=== PATIENT | female | born 1970 | race Caucasian/White ===

== ENCOUNTER 2017-05-24 15:25 | Emergency (ER) | payer OTHER ==
[2017-05-24] MEDS ORDERED: FAMOTIDINE 20 MG/2 ML VIAL IV STA (15:50)
[2017-05-24] MEDS ORDERED: SUCRALFATE 1 GM TAB PO STA (15:50)
[2017-05-24] MEDS ORDERED: SODIUM CHLORIDE 0.9% 1,000 ML IV ONE (15:50)
[2017-05-24] MEDS ORDERED: ONDANSETRON 4 MG/2 ML VIAL IVP STA (15:50)
[2017-05-24] MEDS ORDERED: IOHEXOL 350 MG/ML 25 ML BOTTLE (ORAL USE) PO PRN (15:50)
[2017-05-24] MEDS ORDERED: RX INFO: IV CONTRAST WAS GIVEN 1 EACH MISC MISCELLANE PRN (15:50)
--- NOTE | 2017-05-24 16:14 | ED ---
Abdominal Pain HPI - General Chief Complaint: Abdominal Pain Stated Complaint: abdominal pain/lightheaded/dizzy Source: patient Mode of arrival: wheelchair Limitations: no limitations - History of Present Illness Initial Comments: Patient is a 46-year-old female who presents for evaluation for left upper abdominal pain nausea and vomiting since last night. Past medical history as below. Patient stated that she had a lap band procedure about 12-13 years ago at our facility. She also has a history of hiatal hernia. She states that she developed the pain last night. She describes it as a "ripping" sensation. Laying straight makes it better. Moving makes it worse. It is currently 7 out of 10 and severity. She states that she feels nauseous. She vomited once which was clear/mucousy emesis. She has a history of a cholecystectomy and hysterectomy. No diarrhea. Normal bowel movement this morning. No radiation of pain. No changes in diet. No sick contacts. She states that she has a metallic taste in the back of her throat. This is unusual for her. She currently denies fever, chills, headache, changes of vision, URI symptoms, shortness breath, cough, chest pain, diarrhea, pain or burning with urination. - Related Data Home Medications Medication Instructions Recorded Confirmed Acyclovir 400 mg PO DAILY 05/24/17 05/24/17 Estradiol [Estrace] 2 mg PO DAILY 05/24/17 05/24/17 traMADol HCL [Ultram] 50 mg PO Q8H PRN 05/24/17 05/24/17 Previous Rx's Medication Instructions Recorded Ondansetron Odt [Zofran Odt] 4 mg PO Q8H PRN #10 tab 05/24/17 Allergies Allergy/AdvReac Type Severity Reaction Status Date / Time No Known Allergies Allergy Verified 05/24/17 15:36 Review of Systems ROS Statement: Those systems with pertinent positive or pertinent negative responses have been documented in the HPI. ROS Other: All systems not noted in ROS Statement are negative. Past Medical History Past Medical History: GERD/Reflux Additional Past Medical History / Comment(s): hiatel hernia History of Any Multi-Drug Resistant Organisms: None Reported Past Surgical History: Bariatric Surgery, Tonsillectomy, Tubal Ligation Additional Past Surgical History / Comment(s): lap band Past Anesthesia/Blood Transfusion Reactions: No Reported Reaction Past Psychological History: No Psychological Hx Reported Smoking Status: Never smoker Past Alcohol Use History: None Reported Past Drug Use History: None Reported General Exam Limitations: no limitations General appearance: alert, in no apparent distress, other (Nontoxic appearing) Head exam: Present: atraumatic, normocephalic, normal inspection Eye exam: Present: normal appearance, PERRL, EOMI. Absent: scleral icterus, conjunctival injection, periorbital swelling ENT exam: Present: normal exam, mucous membranes moist, other (Mild erythema to the posterior oropharynx) Neck exam: Present: normal inspection. Absent: tenderness, meningismus, lymphadenopathy Respiratory exam: Present: normal lung sounds bilaterally. Absent: respiratory distress, wheezes, rales, rhonchi, stridor Cardiovascular Exam: Present: regular rate, normal rhythm, normal heart sounds. Absent: systolic murmur, diastolic murmur, rubs, gallop, clicks GI/Abdominal exam: Present: soft, tenderness, normal bowel sounds, other (Pain with palpation in the left upper quadrant/epigastric area. Soft. No peritoneal signs. Could palpate the LAP-BAND port.). Absent: distended, guarding, rebound, rigid Extremities exam: Present: normal inspection, full ROM, normal capillary refill. Absent: tenderness, pedal edema, joint swelling, calf tenderness Back exam: Present: normal inspection Neurological exam: Present: alert, oriented X3, CN II-XII intact Psychiatric exam: Present: normal affect, normal mood Skin exam: Present: warm, dry, intact, normal color. Absent: rash Course Vital Signs 05/24/17 05/24/17 05/24/17 15:29 15:59 16:59 Temperature 98.1 F Pulse Rate 90 70 73 Respiratory 20 20 18 Rate Blood Pressure 128/86 124/76 122/67 O2 Sat by Pulse 98 98 97 Oximetry 05/24/17 17:00 Temperature Pulse Rate 83 Respiratory 20 Rate Blood Pressure 128/71 O2 Sat by Pulse 97 Oximetry Medical Decision Making - Medical Decision Making Patient is a 46-year-old female resents for evaluation for epigastric/left upper quadrant abdominal pain. History of LAP-BAND. Patella case and the best back of her throat with a history of hiatal hernia. Concern for abnormality with the LAP-BAND vs hiatal hernia/GERD. We'll order abdominal labs with CT abdomen and pelvis, EKG, Carafate, Pepcid, Zofran, IV fluids. 1608: Normal sinus rhythm. No ST changes. Rate of 69. CA 162. QRS 86. QTc 415. No previous EKG for comparison. 1730: Reviewed laboratory studies. Within normal limits. Awaiting CT. Patient states that her nausea is greatly improved. Still having some discomfort. 1800: @ CT. 1835: Reviewed CT findings. No acute abnormality. Small hiatal hernia. I reevaluated the patient and she states that she symptomatically feels improved. No longer nauseous. Pain improved. She states that she has her bariatric surgeon's contact information at home. We'll provide her with Drs. Mukherjee and Angy for follow-up if she cannot find it. In the interim, encouraged a bland diet. Plenty of fluids. We'll prescribe Zofran for home for nausea and vomiting. Discussed specific signs and symptoms on when to return to the emergency department for further evaluation. She is comfortable with discharge home and will call bariatric surgeon tomorrow for follow-up. - Lab Data Result diagrams: 05/24/17 16:03 05/24/17 16:03 Lab Results 05/24/17 05/24/17 05/24/17 Range/Units 16:03 16:03 17:10 WBC 9.8 (3.8-10.6) k/uL RBC 4.38 (3.80-5.40) m/uL Hgb 13.6 (11.4-16.0) gm/dL Hct 40.2 (34.0-46.0) % MCV 91.8 (80.0-100.0) fL MCH 31.1 (25.0-35.0) pg MCHC 33.9 (31.0-37.0) g/dL RDW 13.6 (11.5-15.5) % Plt Count 243 (150-450) k/uL Neutrophils % 79 % Lymphocytes % 14 % Monocytes % 4 % Eosinophils % 2 % Basophils % 0 % Neutrophils # 7.7 (1.3-7.7) k/uL Lymphocytes # 1.4 (1.0-4.8) k/uL Monocytes # 0.4 (0-1.0) k/uL Eosinophils # 0.2 (0-0.7) k/uL Basophils # 0.0 (0-0.2) k/uL Sodium 145 (137-145) mmol/L Potassium 3.9 (3.5-5.1) mmol/L Chloride 112 H (98-107) mmol/L Carbon Dioxide 22 (22-30) mmol/L Anion Gap 11 mmol/L BUN 12 (7-17) mg/dL Creatinine 0.80 (0.52-1.04) mg/dL Est GFR (MDRD) Af Amer >60 (>60 ml/min/1.73 sqM) Est GFR (MDRD) Non-Af >60 (>60 ml/min/1.73 sqM) Glucose 108 H (74-99) mg/dL Calcium 8.8 (8.4-10.2) mg/dL Total Bilirubin 0.4 (0.2-1.3) mg/dL AST 21 (14-36) U/L ALT 33 (9-52) U/L Alkaline Phosphatase 52 (38-126) U/L Total Protein 6.2 L (6.3-8.2) g/dL Albumin 3.6 (3.5-5.0) g/dL Lipase 118 (23-300) U/L Urine Color Yellow Urine Appearance Cloudy H (Clear) Urine pH 8.0 (5.0-8.0) Ur Specific [place] 1.020 (1.001-1.035) Urine Protein Negative (Negative) Urine Glucose (UA) Negative (Negative) Urine Ketones Negative (Negative) Urine Blood Negative (Negative) Urine Nitrite Negative (Negative) Urine Bilirubin Negative (Negative) Urine Urobilinogen 2.0 (<2.0) mg/dL Ur Leukocyte Esterase Negative (Negative) Ur Squamous Epith Cells 1 (0-4) /hpf Amorphous Sediment Rare H (None) /hpf Urine Mucus Rare H (None) /hpf Disposition Clinical Impression: Abdominal pain, Nausea and vomiting Disposition: HOME SELF-CARE Condition: Good Instructions: Abdominal Pain (ED) Prescriptions: Ondansetron Odt [Zofran Odt] 4 mg PO Q8H PRN #10 tab PRN Reason: Nausea And Vomiting Referrals: Sonny Crain DO [Primary Care Provider] - 1-2 days Arun Travis MD [STAFF PHYSICIAN] - 1-2 days Momo Mukherjee MD [Medical Doctor] - 1-2 days
[2017-05-24 16:17] LABS: Basophils % (A) 0 %; CH 31.9; CHCM 34.9; Eosinophils # (A) 0.2 k/uL (0-0.7); Eosinophils % (A) 2 %; HCT 40.2 % (34.0-46.0); HGB 13.6 gm/dL (11.4-16.0); Luc # (Auto) 0.09; Luc % (Auto) 1; Lymphocytes # (A) 1.4 k/uL (1.0-4.8); Lymphocytes % (A) 14 %; MCH 31.1 pg (25.0-35.0); MCHC 33.9 g/dL (31.0-37.0); MCV 91.8 fL (80.0-100.0); Mean Platelet Volume 7.9; Monocytes # (A) 0.4 k/uL (0-1.0); Monocytes % (A) 4 %; Neutrophils # (A) 7.7 k/uL (1.3-7.7); Neutrophils % (A) 79 %; RBC 4.38 m/uL (3.80-5.40); RDW 13.6 % (11.5-15.5); WBC 9.8 k/uL (3.8-10.6); WBC (Perox) 10.09
[2017-05-24 16:28] LABS: ALT 33 U/L (9-52); AST 21 U/L (14-36); Alkaline Phosphatase 52 U/L (38-126); Anion Gap 11 mmol/L; Blood Urea Nitrogen 12 mg/dL (7-17); Calcium 8.8 mg/dL (8.4-10.2); Carbon Dioxide 22 mmol/L (22-30); Chloride 112 mmol/L (98-107); Glucose 108 mg/dL (74-99); Non-African American GFR(MDRD) >60 (>60 ml/min/1.73 sqM); Potassium 3.9 mmol/L (3.5-5.1); Sodium 145 mmol/L (137-145); Total Bilirubin 0.4 mg/dL (0.2-1.3); Total Protein 6.2 g/dL (6.3-8.2)
[2017-05-24 17:33] VITALS: RESP 20
[2017-05-24 18:00] LABS: Amorphous Sediment,Urine Rare /hpf; Mucus,Urine Rare /hpf; Particle Count 9822; Squamous Epithelial Cell,Urine 1 /hpf (0-4)
[2017-05-24 18:11] LABS: Appearance,Urine Cloudy (Clear); Bilirubin,Urine Negative (Negative); Glucose,Urine (UA) Negative (Negative); Ketones,Urine Negative (Negative); Leukocyte Esterase,Urine Negative (Negative); Nitrite,Urine Negative (Negative); Protein,Urine Negative (Negative); UA Billing (MACRO vs. MICRO) MICRO
--- NOTE | 2017-05-24 18:12 | CT ---
EXAMINATION TYPE: CT abdomen pelvis w con DATE OF EXAM: 05/24/2017 COMPARISON: NONE HISTORY: Abominal pain. Hx of lap band. CT DLP: 861.2 mGycm Automated exposure control for dose reduction was used. TECHNIQUE: Helical acquisition of images was performed from the lung bases through the pelvis. CONTRAST: Performed with Oral Contrast and with IV Contrast, patient injected with 100 mL of Omnipaque 300. FINDINGS: Lung bases are clear of consolidation. There is no pleural effusion. There is a hiatal hernia. There are clips from cholecystectomy. Liver appears normal. Spleen appears normal. There is no pancre atic mass. Bile ducts are not dilated. There is no adrenal mass. There is bariatric surgery with a ring around the gastric fundus. There is small hiatal hernia. There is no adrenal mass. Kidneys show satisfactory contrast opacification. There is no hydronephrosi s. There is no ascites. Bladder distends smoothly. I see no pelvic mass. Appendix appears normal. I see no intestinal wall th ickening. There are no dilated loops. Bony structures appear intact. IMPRESSION: BARIATRIC SURGERY. NO SIGN OF ACUTE ABDOMEN AND PELVIS. SMALL HIATAL HERNIA.
[2017-05-24 18:43] VITALS: BP 133/80; PULSE 62; TEMP 97.4
== END 2017-05-24 19:00 | disposition home or self-care (01) ==
LOC: EC 15:25
DX: R10.12 Left upper quadrant pain (principal); R11.2 Nausea with vomiting, unspecified; Z79.3 Long term (current) use of hormonal contraceptives; Z79.899 Other long term (current) drug therapy; Z98.84 Bariatric surgery status; Z90.710 Acquired absence of both cervix and uterus
CPT/HCPCS: 36415; 93005; 80053; 83690; 85025; 81001; 74177; 99284; 96374; 96375; 96361 ×2; J2405; Q9967

== ENCOUNTER → 2020-04-30 | Outpatient (CLI) | payer OTHER ==
--- NOTE | 2020-05-02 11:02 | MM ---
Reason for exam: screening (asymptomatic). Last mammogram was performed 6 years and 3 months ago. History: Patient is postmenopausal. Family history of breast cancer in maternal aunt, breast cancer in maternal grandmother, and breast cancer in paternal grandmother. Took hormonal contraceptives for 6 years beginning at age 20. Took estrogen for 3 years. Physical Findings: A clinical breast exam by your physician is recommended on an annual basis and results should be correlated with mammographic findings. MG Screening Mammo w CAD Bilateral CC and MLO view(s) were taken. Prior study comparison: January 24, 2014, bilateral digital screening mammo w/CAD. March 13, 2011, right diagnostic mammogram w/CAD. There are scattered fibroglandular densities. No significant changes when compared with prior studies. ASSESSMENT: Benign, BI-RAD 2 RECOMMENDATION: Routine screening mammogram of both breasts in 1 year.
== END | disposition home or self-care (01) ==
LOC: RADMAMWWP 13:26
PROVIDERS: ATTEND Family Medicine
DX: Z12.31 Encounter for screening mammogram for malignant neoplasm of breast (principal)
CPT/HCPCS: 77067

== ENCOUNTER 2021-10-20 09:13 | Emergency (ER) | payer OTHER ==
[2021-10-20 09:18] VITALS: RESP 18; TEMP 98.2
[2021-10-20] MEDS ORDERED: KETOROLAC 15 MG/ML 1 ML VIAL IM STA (09:19)
--- NOTE | 2021-10-20 09:46 | XR ---
EXAMINATION TYPE: XR elbow complete RT DATE OF EXAM: 10/20/2021 COMPARISON: None HISTORY: Fall, pain TECHNIQUE: Three-view right elbow FINDINGS: Radius aligns normally with the humerus. Anterior fat pad is normal. No elevation posterior fat pad is evident which is normal. No acute fracture or dislocation is evident. Follow up exams can be performed 7-10 days from acute trauma for continued pain IMPRESSION: 1. Normal three-view right elbow. Follow-up can be performed as clinically indicated
--- NOTE | 2021-10-20 09:47 | XR ---
EXAMINATION TYPE: XR shoulder complete RT DATE OF EXAM: 10/20/2021 COMPARISON: NONE HISTORY: Pain TECHNIQUE: Shoulder examined in 3 ejections FINDINGS: The humeral head articulates with the glenoid. The acromio-clavicular junction is normal. No acute fractures or dislocations are evident. A follow up study can be performed 7-10 days from acute trauma for continued pain. IMPRESSION: 1. Normal two-view right Shoulder
--- NOTE | 2021-10-20 10:00 | ED ---
Fall HPI - General Chief Complaint: Fall Stated Complaint: right elbow injury Time Seen by Provider: 10/20/21 09:20 Source: patient, RN notes reviewed Mode of arrival: ambulatory - History of Present Illness Initial Comments: Patient is a 51-year-old female that presents to the emergency department complaining of right elbow and shoulder pain. She notes she slipped on ice whil e trying to get into her car prior to work this morning. Patient notes that she usually tolerates pain. Well but feels like she came in for possible injury. Patient notes that moving her right elbow is painful. She does have full range of motion but is reluctant secondary to pain. She denied any other issues or complaints. She was otherwise well-appearing. She denied chest pain shortness of breath headache nausea vomiting diarrhea constipation fever fatigue chills. - Related Data Home Medications Medication Instructions Recorded Confirmed Estradiol [Estrace] 2 mg PO DAILY 05/24/17 08/03/17 traMADol HCL [Ultram] 50 mg PO Q8H PRN 05/24/17 08/03/17 Previous Rx's Medication Instructions Recorded Nystatin 100,000Unit/gm Cream 1 applic TOPICAL BID #120 gm 08/03/17 [Mycostatin Cream] Allergies Allergy/AdvReac Type Severity Reaction Status Date / Time No Known Allergies Allergy Verified 10/20/21 09:18 Review of Systems ROS Statement: Those systems with pertinent positive or pertinent negative responses have been documented in the HPI. ROS Other: All systems not noted in ROS Statement are negative. Past Medical History Past Medical History: GERD/Reflux Additional Past Medical History / Comment(s): hiatal hernia, ovarian cysts History of Any Multi-Drug Resistant Organisms: None Reported Past Surgical History: Bariatric Surgery, Tonsillectomy, Tubal Ligation Additional Past Surgical History / Comment(s): lap band 2002, total hysterectomy 2013 Past Anesthesia/Blood Transfusion Reactions: No Reported Reaction Additional Past Anesthesia/Blood Transfusion Reaction / Comment(s): No hx of transfusions Past Psychological History: Anxiety Smoking Status: Never smoker Past Alcohol Use History: None Reported Past Drug Use History: None Reported - Past Family History Father Family Medical History: Asthma, Cancer Additional Family Medical History / Comment(s): colon cancer, Mother Family Medical History: Cancer Additional Family Medical History / Comment(s): at age 50 from stomach cancer Brother(s) Family Medical History: Cancer Additional Family Medical History / Comment(s): LYMPHOMA General Exam Limitations: no limitations General appearance: alert, in no apparent distress Head exam: Present: atraumatic, normocephalic, normal inspection Eye exam: Present: normal appearance, PERRL, EOMI. Absent: scleral icterus, conjunctival injection, periorbital swelling ENT exam: Present: normal exam Neck exam: Present: normal inspection. Absent: tenderness, meningismus, lymphadenopathy Respiratory exam: Present: normal lung sounds bilaterally. Absent: respiratory distress, wheezes, rales, rhonchi, stridor Cardiovascular Exam: Present: regular rate, normal rhythm, normal heart sounds. Absent: systolic murmur, diastolic murmur, rubs, gallop, clicks Extremities exam: Present: normal inspection, full ROM, normal capillary refill. Absent: tenderness, pedal edema, joint swelling, calf tenderness Right Shoulder Exam: Present: normal inspection, full ROM. Absent: tenderness, swelling, abrasion, laceration, ecchymosis, deformity, crepitus Upper Arm exam: Present: normal inspection, full ROM, tenderness (Posterior middle upper arm). Absent: swelling, abrasion Elbow exam: Present: normal inspection, full ROM, tenderness (Over the olecranon). Absent: swelling, abrasion Neurological exam: Present: alert, oriented X3 Psychiatric exam: Present: normal affect, normal mood Skin exam: Present: warm, dry, intact, normal color. Absent: rash Course Vital Signs 10/20/21 09:14 Temperature 98.2 F Pulse Rate 107 H Respiratory 18 Rate Blood Pressure 162/88 O2 Sat by Pulse 96 Oximetry Medical Decision Making - Medical Decision Making 51-year-old female complaining of right shoulder elbow pain after falling on ice. X-ray of the right shoulder elbow and 15 mg of Toradol ordered. X-ray imaging negative for any acute process. Patient most likely has a right elbow contusion and right arm sprain. Case discussed with Dr. Cevrantes. - Radiology Data Radiology results: report reviewed, image reviewed X-ray right shoulder: Normal to the right shoulder. X-ray right elbow: No muscle 3 view right elbow. Follow-up to be performed as clinically indicated. Disposition Clinical Impression: Fall, Contusion of right elbow, Sprain of right upper arm Disposition: HOME SELF-CARE Condition: Stable Instructions (If sedation given, give patient instructions): Fall Prevention (ED) Additional Instructions: Please return to the Emergency Department if symptoms worsen or any other concerns. Follow-up with primary care in 1-2 days. Repeat x-rays if pain persists for 7-10 days. Take Tylenol Motrin as needed for aches pains or fevers. Is patient prescribed a controlled substance at d/c from ED?: No Referrals: Sonny Crain DO [Primary Care Provider] - 1-2 days Time of Disposition: 09:59
[2021-10-20 10:28] VITALS: BP 158/79; PULSE 101
== END 2021-10-20 10:29 | disposition home or self-care (01) ==
LOC: EC 09:13
DX: S50.01XA Contusion of right elbow, initial encounter (principal); S43.401A Unspecified sprain of right shoulder joint, initial encounter; F41.9 Anxiety disorder, unspecified; W00.0XXA Fall on same level due to ice and snow, initial encounter
CPT/HCPCS: 99283; 96372; 73030; 73080; J1885

== ENCOUNTER → 2022-11-07 | Outpatient (CLI) | payer OTHER ==
--- NOTE | 2022-11-07 10:15 | MM ---
Reason for Exam: Clinical finding. Last mammogram was performed 2 year(s) and 6 month(s) ago. Patient History: Menarche at age 15. First Full-Term at age 20. Left ovary removed at age 46. Right ovary removed at age 46. Hysterectomy at age 46. Postmenopausal. Patient used Estrogen for 3 years. Hormonal Contraceptives for 6 years from age 20 until age 27. Paternal grandmother had breast cancer. Maternal grandmother had breast cancer. Maternal aunt had breast cancer. Risk Values: Laura 5 year model risk: 0.7%. NCI Lifetime model risk: 6.5%. Prior Study Comparison: 08/03/2007 Screening Mammogram, [facility]. 09/03/2010 Bilateral Diagnostic Mammogram, [facility]. 09/03/2010 Right Diagnostic Ultrasound, [facility] 03/13/2011 Right Diagnostic Mammogram, [facility]. 03/13/2011 Right Diagnostic Ultrasound, [facility]. 01/24/2014 Bilateral Screening Mammogram, [facility]. 04/30/2020 Bilateral Screening Mammogram, [facility]. Tissue Density: There are scattered fibroglandular densities. Findings: Analyzed By CAD. No new suspicious mass or calcifications within either breast. Similar bilateral minimally prominent axillary lymph nodes. Overall Assessment: Incomplete: need additional imaging evaluation, BI-RAD 0 Management: Diagnostic Breast Ultrasound of both breasts. A clinical breast exam by your physician is recommended on an annual basis and results should be correlated with mammographic findings. This exam should not preclude additional follow-up of suspicious palpable abnormalities. Results were given to the patient verbally at the time of exam. Electronically signed and approved by: Kenney Hung D.O.
--- NOTE | 2022-11-07 10:45 | USB ---
Reason for Exam: Clinical finding. Patient History: Menarche at age 15. First Full-Term at age 20. Left ovary removed at age 46. Right ovary removed at age 46. Hysterectomy at age 46. Postmenopausal. Patient used Estrogen for 3 years. Hormonal Contraceptives for 6 years from age 20 until age 27. Paternal grandmother had breast cancer. Maternal grandmother had breast cancer. Maternal aunt had breast cancer. Risk Values: Laura 5 year model risk: 0.7%. NCI Lifetime model risk: 6.5%. Technique: Method: Targeted. Prior Study Comparison: 03/13/2011 Right Diagnostic Mammogram, [facility]. 01/24/2014 Bilateral Screening Mammogram, [facility]. 04/30/2020 Bilateral Screening Mammogram, [facility]. Findings: The axilla of the left breast was scanned. Left axilla ultrasound was performed. There are a few lymph nodes identified with central fatty hilum with largest measuring 2.0 x 1.0 x 0.9 cm with a cortical thickness of 0.35 cm. Overall Assessment: Probably benign, BI-RAD 3 Management: Diagnostic Breast Ultrasound of the left breast in 6 months. Follow-up left axilla ultrasound in 6 months to assess for stability. A clinical breast exam by your physician is recommended on an annual basis and results should be correlated with mammographic findings. This exam should not preclude additional follow-up of suspicious palpable abnormalities. Results were given to the patient verbally at the time of exam. Electronically signed and approved by: Kenney Hung D.O.
--- NOTE | 2022-11-07 10:47 | USB ---
Reason for Exam: Clinical finding. Patient History: Menarche at age 15. First Full-Term at age 20. Left ovary removed at age 46. Right ovary removed at age 46. Hysterectomy at age 46. Postmenopausal. Patient used Estrogen for 3 years. Hormonal Contraceptives for 6 years from age 20 until age 27. Paternal grandmother had breast cancer. Maternal grandmother had breast cancer. Maternal aunt had breast cancer. Risk Values: Laura 5 year model risk: 0.7%. NCI Lifetime model risk: 6.5%. Technique: Method: Targeted. Prior Study Comparison: 03/13/2011 Right Diagnostic Mammogram, [facility]. 01/24/2014 Bilateral Screening Mammogram, [facility]. 04/30/2020 Bilateral Screening Mammogram, [facility]. Findings: The axilla of the right breast was scanned. Ultrasound of the right axilla was performed. Few lymph nodes are identified with central fatty hilum. The largest measures 1.4 x 1.1 x 1.0 cm with a cortical thickness of 0.5 cm which is thickened. These may be reactive. Overall Assessment: Probably benign, BI-RAD 3 Management: Diagnostic Breast Ultrasound of the right breast in 6 months. Follow-up right axillary ultrasound in 6 months to assess for stability or resolution. A clinical breast exam by your physician is recommended on an annual basis and results should be correlated with mammographic findings. This exam should not preclude additional follow-up of suspicious palpable abnormalities. Results were given to the patient verbally at the time of exam. Electronically signed and approved by: Kenney Hung D.O.
== END | disposition home or self-care (01) ==
LOC: RADMAMWWP 09:47
PROVIDERS: ATTEND Family Medicine
DX: R92.8 Other abnormal and inconclusive findings on diagnostic imaging of breast (principal); R59.0 Localized enlarged lymph nodes; Z78.0 Asymptomatic menopausal state; Z80.3 Family history of malignant neoplasm of breast; Z90.721 Acquired absence of ovaries, unilateral
CPT/HCPCS: 77066; 76642 ×2; G0279; 77062

== ENCOUNTER → 2023-02-16 | Outpatient (CLI) | payer OTHER ==
[2023-02-16 13:16] VITALS: BP 140/89; PULSE 80; TEMP 97.9; BMI 42.5
--- NOTE | 2023-03-24 10:19 | P.HPBAR ---
Bariatric H&P - History & Physicial H&P Date: 02/16/23 History & Physicial: Visit/CC: lap band Patient initial contact: Initial weight: 131.542 kg Initial weight in pounds: 290.00 Height: 5 ft 4 in Initial BMI: 49.8 Last weight: Current weight: 112.491 kg Current weight in pounds: 248.00 Current BMI: 42.5 [place] body weight (based on NIH guidelines): 54.431 kg Excess body weight loss: 24.7% The patient is a 52 year-old F who presents for Bariatric Assessment. Patient resents today for bariatric follow-up. She's not been seen some time. Patient had her LAP-BAND surgery approximately 19 years ago. Patient wishes to have a fill of her band. Past Medical History Past Medical History: GERD/Reflux, Hypertension, Osteoarthritis (OA) Additional Past Medical History / Comment(s): hiatal hernia, ovarian cysts, pre diabetic - trying dietary interventions, abominal cramping when she bends over History of Any Multi-Drug Resistant Organisms: None Reported Past Surgical History: Bariatric Surgery, Hysterectomy, Tonsillectomy, Tubal Ligation Additional Past Surgical History / Comment(s): lap band 2002, total hysterectomy 2013 Past Anesthesia/Blood Transfusion Reactions: No Reported Reaction Additional Past Anesthesia/Blood Transfusion Reaction / Comm: No hx of transfusions Past Psychological History: Anxiety Smoking Status: Never smoker Past Alcohol Use History: None Reported Past Drug Use History: None Reported - Past Family History Father Family Medical History: Asthma, Cancer Additional Family Medical History / Comment(s): colon cancer, Mother Family Medical History: Cancer Additional Family Medical History / Comment(s): at age 50 from stomach cancer Brother(s) Family Medical History: Cancer Additional Family Medical History / Comment(s): LYMPHOMA Surgical - Exam Vital Signs Temp Pulse BP 97.9 F 80 140/89 02/16/23 13:10 02/16/23 13:10 02/16/23 13:10 - General well developed, well nourished, no distress - Eyes PERRL - ENT normal pinna - Neck no masses - Respiratory normal expansion - Cardiovascular Rhythm: regular - Abdomen Abdomen: soft, non tender Bariatric Assessment & Plan Plan: Patient LAP-BAND was attempted to be accessed. Patient appears to have a malfunctioning LAP-BAND port. Patient will need her LAP-BAND port replaced. Bariatric Checklist Checklist: Plan: Checklist: EGD: 1. Hiatal hernia: 2. H. Pylori: HgbA1c: Vitamin D: Smoking: Never smoker Primary care physician referral: eva echeverria Psychiatry clearance: Cardiology clearance: Sleep study: Diet journal: VTE risk score: VTE risk level: Rehab needs at discharge:
== END ==
LOC: BARWHC3 12:58
PROVIDERS: ATTEND Surgery
DX: E66.01 Morbid (severe) obesity due to excess calories (principal); Z68.41 Body mass index [BMI] 40.0-44.9, adult; I10 Essential (primary) hypertension; K21.9 Gastro-esophageal reflux disease without esophagitis; M19.90 Unspecified osteoarthritis, unspecified site; Z46.51 Encounter for fitting and adjustment of gastric lap band; Z79.899 Other long term (current) drug therapy
CPT/HCPCS: 99212

== ENCOUNTER 2023-02-23 13:32 | Day surgery (SDC) | payer OTHER ==
[2023-02-19 17:24] VITALS: BMI 41.5
[~2023-02-23 13:32] MED LIST: LACTATED RINGERS 1,000 ML IV SCH
[2023-02-23] MEDS ORDERED: ONDANSETRON 4 MG/2 ML VIAL ONE (14:12)
[2023-02-23 14:17] VITALS: RESP 16; TEMP 97.7
[2023-02-23] MEDS ORDERED: ONDANSETRON 4 MG/2 ML VIAL IVP ONE (14:30)
[2023-02-23] MEDS ORDERED: LIDOCAINE 2% INJ 20 MG/ML (2 ML VIAL) ONE (15:03)
[2023-02-23] MEDS ORDERED: PROPOFOL 10 MG/ML 20 ML VIAL IV ONE (15:03)
--- NOTE | 2023-02-23 15:09 | P.GSHP ---
History of Present Illness H&P Date: 02/23/23 Chief Complaint: GERD Is a 52-year-old female patient was had issues with GERD. Patient presents today for EGD. Past Medical History Past Medical History: GERD/Reflux, Hypertension, Osteoarthritis (OA) Additional Past Medical History / Comment(s): hiatal hernia, ovarian cysts, pre diabetic - trying dietary interventions, abominal cramping when she bends over History of Any Multi-Drug Resistant Organisms: None Reported Past Surgical History: Bariatric Surgery, Hysterectomy, Tonsillectomy, Tubal Ligation Additional Past Surgical History / Comment(s): lap band 2002, total hysterectomy 2013 Past Anesthesia/Blood Transfusion Reactions: No Reported Reaction Additional Past Anesthesia/Blood Transfusion Reaction / Comment(s): No hx of transfusions Past Psychological History: Anxiety, Depression Smoking Status: Never smoker Past Alcohol Use History: None Reported Past Drug Use History: None Reported - Past Family History Father Family Medical History: Asthma, Cancer Additional Family Medical History / Comment(s): colon cancer, Mother Family Medical History: Cancer Additional Family Medical History / Comment(s): at age 50 from stomach cancer Brother(s) Family Medical History: Cancer Additional Family Medical History / Comment(s): LYMPHOMA Medications and Allergies Home Medications Medication Instructions Recorded Confirmed Type traMADol HCL [Ultram] 50 mg PO Q8H PRN 05/24/17 02/19/23 History Famotidine 40 mg PO HS 12/08/22 02/19/23 History Omeprazole 20 mg PO DAILY 12/08/22 02/19/23 History Unk Multi Vitamin 1 tab PO DAILY 12/08/22 02/19/23 History Unk Vitamin B12 1 tab PO DAILY 12/08/22 02/19/23 History Unk Vitamin D3 25 mcg PO DAILY 12/08/22 02/19/23 History Vilazodone HCl [Viibryd] 40 mg PO DAILY 12/08/22 02/19/23 History busPIRone HCL [Buspirone HCl] 15 mg PO DAILY 12/08/22 02/19/23 History lisinopriL [Zestril] 10 mg PO DAILY 12/08/22 02/19/23 History Cranberry Fruit Extract [Cranberry] 200 mg PO DAILY 02/16/23 02/19/23 History estradioL 2 mg PO DAILY 02/19/23 02/19/23 History Allergies Allergy/AdvReac Type Severity Reaction Status Date / Time No Known Allergies Allergy Verified 02/23/23 14:07 Surgical - Exam Vital Signs Temp Pulse Resp BP Pulse Ox 97.7 F 85 16 134/64 93 L 02/23/23 14:15 02/23/23 14:15 02/23/23 14:15 02/23/23 14:15 02/23/23 14:15 - General well developed, well nourished, no distress - Eyes PERRL - ENT normal pinna - Neck no masses - Respiratory normal expansion - Cardiovascular Rhythm: regular - Abdomen Abdomen: soft, non tender Assessment and Plan Assessment: GERD. We'll perform EGD.
--- NOTE | 2023-02-23 15:21 | P.OP ---
Date of Procedure: 02/23/23 Preoperative Diagnosis: GERD Morbid obesity BMI 41 Postoperative Diagnosis: Antral gastritis Hiatal hernia Procedure(s) Performed: EGD Anesthesia: MAC Surgeon: Arun Travis Pathology: other (Antrum) Condition: stable Disposition: PACU Description of Procedure: The patient's placed on the endoscopy table in the lateral position. She received IV sedation. The gastroscope placed oropharynx passed in the esophagus and stomach. Scope was then placed through the pylorus. First and second portion of the duodenum appeared normal. Scope was then brought back the antrum this. Mildly inflamed. A biopsies performed. The scope was then retroflexed and remainder the stomach. Patient had a sliding hiatal hernia. The GE junction was at 38 cm. The distal esophagusAppeared Normal. The proximal esophagus appeared normal. The scope was withdrawn for patient.
[2023-02-23 15:35] VITALS: BP 97/58; PULSE 76
== END 2023-02-23 15:55 | disposition home or self-care (01) ==
LOC: ORWHC2ENDO 13:32
PROVIDERS: ATTEND Surgery
DX: K29.50 Unspecified chronic gastritis without bleeding (principal); K21.9 Gastro-esophageal reflux disease without esophagitis; K44.9 Diaphragmatic hernia without obstruction or gangrene; E66.01 Morbid (severe) obesity due to excess calories; Z68.41 Body mass index [BMI] 40.0-44.9, adult; I10 Essential (primary) hypertension; M19.90 Unspecified osteoarthritis, unspecified site; Z98.84 Bariatric surgery status; Z80.0 Family history of malignant neoplasm of digestive organs; Z79.899 Other long term (current) drug therapy
CPT/HCPCS: 88305; 43239; J2405; J2704; J2001

== ENCOUNTER → 2023-03-02 | Outpatient (CLI) | payer OTHER ==
[2023-03-02 13:53] VITALS: BP 146/89; PULSE 84; TEMP 98; BMI 41.1
== END ==
LOC: BARWHC3 13:06
PROVIDERS: ATTEND Surgery
DX: E66.01 Morbid (severe) obesity due to excess calories (principal); Z68.41 Body mass index [BMI] 40.0-44.9, adult; Z53.21 Procedure and treatment not carried out due to patient leaving prior to being seen by health care provider
CPT/HCPCS: 99211

== ENCOUNTER → 2023-03-09 | Outpatient (CLI) | payer OTHER ==
[2023-03-09 13:35] VITALS: BP 125/88; PULSE 78; TEMP 98.5; BMI 40.6
--- NOTE | 2023-03-24 12:02 | P.HPBAR ---
Bariatric H&P - History & Physicial H&P Date: 03/09/23 History & Physicial: Visit/CC: lap band follow up Patient initial contact: Initial weight: 131.542 kg Initial weight in pounds: 290.00 Height: 5 ft 4 in Initial BMI: 49.8 Last weight: Current weight: 107.501 kg Current weight in pounds: 237.00 Current BMI: 40.6 [place] body weight (based on NIH guidelines): 54.431 kg Excess body weight loss: 31.1% The patient is a 52 year-old F who presents for Bariatric Assessment. Patient presents for LAP-BAND follow-up. Patient has chronic GERD and dysphagia related to her LAP-BAND. She is unable to have her band fill. She wishes to have a conversion to sleeve gastrectomy. Past Medical History Past Medical History: GERD/Reflux, Hypertension, Osteoarthritis (OA) Additional Past Medical History / Comment(s): hiatal hernia, ovarian cysts, pre diabetic - trying dietary interventions, abominal cramping when she bends over History of Any Multi-Drug Resistant Organisms: None Reported Past Surgical History: Bariatric Surgery, Hysterectomy, Tonsillectomy, Tubal Ligation Additional Past Surgical History / Comment(s): lap band 2002, total hysterectomy 2013 Past Anesthesia/Blood Transfusion Reactions: No Reported Reaction Additional Past Anesthesia/Blood Transfusion Reaction / Comm: No hx of transfusions Smoking Status: Never smoker - Past Family History Father Family Medical History: Asthma, Cancer Additional Family Medical History / Comment(s): colon cancer, Mother Family Medical History: Cancer Additional Family Medical History / Comment(s): at age 50 from stomach cancer Brother(s) Family Medical History: Cancer Additional Family Medical History / Comment(s): LYMPHOMA Surgical - Exam Vital Signs Temp Pulse BP 98.5 F 78 125/88 03/09/23 13:23 03/09/23 13:23 03/09/23 13:23 - General well developed, well nourished, no distress - Eyes PERRL - ENT normal pinna - Neck no masses - Respiratory normal expansion - Cardiovascular Rhythm: regular - Abdomen Abdomen: soft, non tender Bariatric Assessment & Plan Plan: Chronic dysphagia and GERD related to her LAP-BAND. Patient will undergo sleeve gastrectomy once she has insurance authorization. She will need a EGD prior to conversion. Bariatric Checklist Checklist: Plan: Checklist: EGD: 1. Hiatal hernia: 2. H. Pylori: HgbA1c: Vitamin D: Smoking: Never smoker Primary care physician referral: eva echeverria Psychiatry clearance: Cardiology clearance: Sleep study: Diet journal: VTE risk score: VTE risk level: Rehab needs at discharge:
== END ==
LOC: BARWHC3 13:04
PROVIDERS: ATTEND Surgery
DX: E66.01 Morbid (severe) obesity due to excess calories (principal); Z68.41 Body mass index [BMI] 40.0-44.9, adult; K21.9 Gastro-esophageal reflux disease without esophagitis; I10 Essential (primary) hypertension; M19.90 Unspecified osteoarthritis, unspecified site; Z46.51 Encounter for fitting and adjustment of gastric lap band; Z98.84 Bariatric surgery status
CPT/HCPCS: 99211

== ENCOUNTER → 2023-04-06 | Outpatient (CLI) | payer OTHER ==
[2023-04-06 13:27] VITALS: BP 141/86; PULSE 68; TEMP 98; BMI 40.8
--- NOTE | 2023-04-28 08:46 | P.HPBAR ---
Bariatric H&P - History & Physicial H&P Date: 04/06/23 History & Physicial: Visit/CC: pre-surg Patient initial contact: Initial weight: 131.542 kg Initial weight in pounds: 290.00 Height: 5 ft 4 in Initial BMI: 49.8 Last weight: Current weight: 107.955 kg Current weight in pounds: 238.00 Current BMI: 40.8 [place] body weight (based on NIH guidelines): 54.431 kg Excess body weight loss: 30.5% The patient is a 52 year-old F who presents for Bariatric Assessment. Patient presents today for follow-up. Patient has history of gastric prolapse/hiatal hernia. Patient wishes convert to sleeve gastrectomy. Her GERD and dysphagia have been stable. Past Medical History Past Medical History: GERD/Reflux, Hypertension, Osteoarthritis (OA) Additional Past Medical History / Comment(s): hiatal hernia, ovarian cysts, pre diabetic - trying dietary interventions, abominal cramping when she bends over History of Any Multi-Drug Resistant Organisms: None Reported Past Surgical History: Bariatric Surgery, Hysterectomy, Tonsillectomy, Tubal Ligation Additional Past Surgical History / Comment(s): lap band 2002, total hysterectomy 2013 Past Anesthesia/Blood Transfusion Reactions: No Reported Reaction Additional Past Anesthesia/Blood Transfusion Reaction / Comm: No hx of transfusions Past Psychological History: Anxiety, Depression Smoking Status: Never smoker Past Alcohol Use History: None Reported Past Drug Use History: None Reported - Past Family History Father Family Medical History: Asthma, Cancer Additional Family Medical History / Comment(s): colon cancer, Mother Family Medical History: Cancer Additional Family Medical History / Comment(s): at age 50 from stomach cancer Brother(s) Family Medical History: Cancer Additional Family Medical History / Comment(s): LYMPHOMA Surgical - Exam Vital Signs Temp Pulse BP 98 F 68 141/86 04/06/23 13:25 04/06/23 13:25 04/06/23 13:25 - General well developed, well nourished - Eyes PERRL - ENT normal pinna - Abdomen Abdomen: soft, non tender Bariatric Assessment & Plan Plan: Chronic GERD and dysphagia with LAP-BAND. Patient will undergo conversion to sleeve gastrectomy once insurance authorization requirements have been met.. Bariatric Checklist Checklist: Plan: Checklist: EGD: 1. Hiatal hernia: 2. H. Pylori: HgbA1c: Vitamin D: Smoking: Never smoker Primary care physician referral: eva echeverria Psychiatry clearance: Cardiology clearance: Sleep study: Diet journal: VTE risk score: VTE risk level: Rehab needs at discharge:
== END ==
LOC: BARWHC3 12:53
PROVIDERS: ATTEND Surgery
DX: E66.01 Morbid (severe) obesity due to excess calories (principal); K21.9 Gastro-esophageal reflux disease without esophagitis; I10 Essential (primary) hypertension; M19.90 Unspecified osteoarthritis, unspecified site; Z87.19 Personal history of other diseases of the digestive system; Z98.84 Bariatric surgery status; Z68.41 Body mass index [BMI] 40.0-44.9, adult; Z79.899 Other long term (current) drug therapy
CPT/HCPCS: 99211

== ENCOUNTER → 2023-04-06 | Outpatient (CLI) | payer OTHER ==
[2023-04-07 02:38] LABS: HCT 46.1 % (37.2-46.3); MCHC 30.4 d/dL (32.0-37.0); MCV 95.4 FL (80.0-97.0); Mean Platelet Volume 11.2 FL (9.5-12.2); NRBC Per 100 WBC 0 X 10*3/uL (0.00-0.01); Platelet Count 318 X 10*3/uL (140-440); RBC 4.83 X 10*6/uL (4.10-5.20); RDW 13.7 % (11.5-14.5); WBC 10.71 X 10*3/uL (4.50-10.00)
[2023-04-07 22:34] LABS: ALT 34 U/L (8-44); AST 32 U/L (13-35); Albumin 4.3 d/dL (3.8-4.9); Albumin/Globulin Ratio 1.43 Ratio (1.60-3.17); Alkaline Phosphatase 110 U/L (41-126); Blood Urea Nitrogen 15.6 mg/dL (9.0-27.0); Calcium 9.5 mg/dL (8.7-10.3); Carbon Dioxide 22.8 mmol/L (21.6-31.8); Chloride 102 mmol/L (96-109); Glucose 86 mg/dL (70-110); Potassium 4.9 mmol/L (3.5-5.5); Sodium 140 mmol/L (135-145); Total Bilirubin 0.3 mg/dL (0.3-1.2); Total Protein 7.3 d/dL (6.2-8.2)
== END | disposition home or self-care (01) ==
LOC: LABWHC1 13:44
PROVIDERS: ATTEND Surgery
DX: E88.81 Metabolic syndrome and other insulin resistance (principal); E66.01 Morbid (severe) obesity due to excess calories; E55.9 Vitamin D deficiency, unspecified
CPT/HCPCS: 36415; 80053; 82306; 82607; 82746; 83036; 84425; 85027; 93005

== ENCOUNTER → 2023-04-13 | Outpatient (CLI) | payer OTHER ==
[2023-04-13 11:26] VITALS: BMI 40.7
== END ==
LOC: BARWHC3 08:40
PROVIDERS: ATTEND Surgery
DX: E66.01 Morbid (severe) obesity due to excess calories (principal); Z71.3 Dietary counseling and surveillance; Z68.41 Body mass index [BMI] 40.0-44.9, adult
CPT/HCPCS: 97804

== ENCOUNTER 2023-05-04 09:13 | Day surgery (SDC) | payer OTHER ==
[2023-04-28 15:54] VITALS: BMI 40.6
[~2023-05-04 09:13] MED LIST changes: +DEXAMETHASONE SOD PHOSPHATE 4 MG/ML 1 ML VIAL IV ONE; +ENOXAPARIN 40 MG/0.4 ML SYRINGE SQ PRN; +HYDROmorphone 0.5 MG/0.5 ML SYRINGE IVP PRN; +LIDOCAINE 1% (10MG/ML) FOR IV START INTRADERMA PRN; +ONDANSETRON 4 MG/2 ML VIAL IVP PRN; +SCOPOLAMINE 1 MG/72 HR PATCH TRANSDERM ONE; +droPERidol 5 MG/2 ML VIAL IVP ONE
[2023-05-04 09:43] LABS: Glucose,Whole Blood 88 mg/dL (70-110)
[2023-05-04] MEDS ORDERED: fentaNYL (PF) 50 MCG/ML 2 ML AMP ONE (09:57)
[2023-05-04] MEDS ORDERED: PROPOFOL 10 MG/ML 20 ML VIAL IV ONE (09:57)
[2023-05-04] MEDS ORDERED: SUCCINYLCHOLINE CHLORIDE 200 MG/10 ML VIAL IV ONE (09:57)
[2023-05-04] MEDS ORDERED: MIDAZOLAM 2 MG/2 ML VIAL ONE (09:57)
[2023-05-04] MEDS ORDERED: SUGAMMADEX SODIUM 200 MG/2 ML SDV IV ONE (09:57)
[2023-05-04] MEDS ORDERED: ROCURONIUM 10 MG/ML (5 ML VIAL) IV ONE (09:57)
[2023-05-04] MEDS ORDERED: HYDROmorphone (PF) 1 MG/ML ONE (09:57)
[2023-05-04] MEDS ORDERED: PHENYLEPHRINE 10 MG/ML VIAL ONE (09:57)
--- NOTE | 2023-05-04 09:57 | P.GSHP ---
History of Present Illness H&P Date: 05/04/23 Chief Complaint: GERD, dysphagia This a 52-year-old female presents today for removal of LAP-BAND conversion to sleeve gastrectomy. Patient's a chronic issues with GERD and dysphagia. Past Medical History Past Medical History: GERD/Reflux, Hypertension, Osteoarthritis (OA) Additional Past Medical History / Comment(s): hiatal hernia, ovarian cysts, pre diabetic - trying dietary interventions, abominal cramping when she bends over History of Any Multi-Drug Resistant Organisms: None Reported Past Surgical History: Bariatric Surgery, Hysterectomy, Tonsillectomy, Tubal Ligation Additional Past Surgical History / Comment(s): lap band 2002, total hysterectomy 2013, EGD, COLONOSCOPY Past Anesthesia/Blood Transfusion Reactions: No Reported Reaction Additional Past Anesthesia/Blood Transfusion Reaction / Comment(s): No hx of transfusions Smoking Status: Never smoker - Past Family History Father Family Medical History: Asthma, Cancer Additional Family Medical History / Comment(s): colon cancer, Mother Family Medical History: Cancer Additional Family Medical History / Comment(s): at age 50 from stomach cancer Brother(s) Family Medical History: Cancer Additional Family Medical History / Comment(s): LYMPHOMA Medications and Allergies Home Medications Medication Instructions Recorded Confirmed Type traMADol HCL [Ultram] 50 mg PO Q8H PRN 05/24/17 05/04/23 History Famotidine 40 mg PO HS 12/08/22 05/04/23 History Omeprazole 20 mg PO DAILY 12/08/22 05/04/23 History Vilazodone HCl [Viibryd] 40 mg PO DAILY 12/08/22 05/04/23 History busPIRone HCL [Buspirone HCl] 15 mg PO DAILY 12/08/22 05/04/23 History lisinopriL [Zestril] 10 mg PO DAILY 12/08/22 05/04/23 History Cranberry Fruit Extract [Cranberry] 200 mg PO DAILY 02/16/23 05/04/23 History estradioL 2 mg PO DAILY 02/19/23 05/04/23 History Cholecalciferol [Vitamin D3 (25 25 mcg PO DAILY 04/28/23 05/04/23 History Mcg = 1000 Iu)] Cyanocobalamin (Vitamin B-12) 1,000 mcg PO DAILY 04/28/23 05/04/23 History [Vitamin B-12] Multivit with Calcium,Iron,Min 1 each PO DAILY 04/28/23 05/04/23 History [Women's Multivitamin] Allergies Allergy/AdvReac Type Severity Reaction Status Date / Time No Known Allergies Allergy Verified 05/04/23 09:33 Surgical - Exam Vital Signs Temp Pulse Resp BP Pulse Ox 98 F 66 16 131/71 95 05/04/23 09:34 05/04/23 09:34 05/04/23 09:34 05/04/23 09:34 05/04/23 09:34 - General well developed, well nourished, no distress - Eyes PERRL - ENT normal pinna - Neck no masses - Respiratory normal expansion - Cardiovascular Rhythm: regular - Abdomen Abdomen: soft, non tender Assessment and Plan Assessment: GERD, dysphagia related to LAP-BAND.. We'll perform removal of LAP-BAND system conversion to sleeve gastrectomy.
[2023-05-04] MEDS ORDERED: BUPIVACAINE (PF) 0.25% 30 ML VIAL SQ ONE (10:40)
[2023-05-04] MEDS ORDERED: HYDROmorphone 0.5 MG/0.5 ML SYRINGE IVP ONE ×2 (11:18→11:31)
[2023-05-04 11:21] VITALS: TEMP 98.4
[2023-05-04 11:32] LABS: Glucose,Whole Blood 102 mg/dL (70-110)
[2023-05-04 11:59] VITALS: RESP 16
[2023-05-04 12:21] VITALS: BP 121/67; PULSE 61
--- NOTE | 2023-05-04 15:35 | P.OP ---
Date of Procedure: 05/04/23 Preoperative Diagnosis: Dysphagia related LAP-BAND Postoperative Diagnosis: Dysphagia related to her LAP-BAND Procedure(s) Performed: Removal of LAP-BAND system Anesthesia: MARE Surgeon: Arun Travis Estimated Blood Loss (ml): 5 Pathology: none sent Condition: stable Disposition: PACU Description of Procedure: The patient's placed the operative table in supine position. She received general endotracheal anesthesia. She was then placed in dorsal lithotomy position. Her abdomen was prepped and draped usual fashion. The skin cystitis has local Xylocaine. Using 11 blade the skin was incised at the LAP-BAND port then using blunt sharp dissection with cautery the LAP-BAND port was dissected free. The PEG tube was then cut and the LAP-BAND port was removed. Using a 5 mm optical trocar under vision the peritoneal cavity was entered. The abdomen was insufflated. After adequate insufflation a another 5 mm trochars placed in the right lateral and left lateral position. And then a 15 mm trocar was placed in the supraumbilical position and then another 5 mm trochars placed in the right epigastric position. The left lateral lobe of liver was retracted. Adhesions Shirley device were visualized. These were lysed with sharp dissection. There was a significant change around the LAP-BAND buckle. Using left cautery the LAP-BAND was dissected free. The LAP-BAND was then cut and withdrawn from around stomach. Due to the patient's dense inflamed or changes around the LAP-BAND device decided not for sleeve gastrectomy. The LAP-BAND device was then brought out through the 15 mm trocar site. The fascia 15 mm trocar site was closed with 0 Vicryl using a Anselmo Garcia suture passer. The areas area is no bleeding seen. Care was taken to identify and preserve the gastric wall. The trochars withdrawn. The skin was closed interrupted 3-0 Monocryl suture. Dermabond was applied. Patient top she will well. She'll brought back at a later date for conversion to sleeve gastrectomy.
== END 2023-05-04 12:51 | disposition home or self-care (01) ==
LOC: OR 09:13 → UNDOADMIN 09:13 → 2ORMAIN 09:13 → EDSTATUS 10:10 → OR 12:51 → UNDODISIN 12:51
PROVIDERS: ATTEND Surgery
DX: K95.09 Other complications of gastric band procedure (principal); R13.10 Dysphagia, unspecified; E66.01 Morbid (severe) obesity due to excess calories; Z68.41 Body mass index [BMI] 40.0-44.9, adult; I10 Essential (primary) hypertension; F41.9 Anxiety disorder, unspecified; F32.A Depression, unspecified; K21.9 Gastro-esophageal reflux disease without esophagitis; M19.90 Unspecified osteoarthritis, unspecified site; Z87.42 Personal history of other diseases of the female genital tract; Z79.1 Long term (current) use of non-steroidal anti-inflammatories (NSAID); Z79.899 Other long term (current) drug therapy
CPT/HCPCS: 43772; J2250; J0330; J1100; J0690; J2405; J1650; J3010; J1170 ×2; J2704; J2371

== ENCOUNTER → 2023-05-11 | Outpatient (CLI) | payer OTHER ==
[2023-05-11 13:58] VITALS: BP 140/87; PULSE 76; TEMP 98.1; BMI 41.1
--- NOTE | 2023-05-15 10:15 | P.HPBAR ---
Bariatric H&P - History & Physicial H&P Date: 05/15/23 History & Physicial: Visit/CC: lap band removal follow up Patient initial contact: Initial weight: 131.542 kg Initial weight in pounds: 290.00 Height: 5 ft 4 in Initial BMI: 49.8 Last weight: Current weight: 108.862 kg Current weight in pounds: 240.00 Current BMI: 41.1 [place] body weight (based on NIH guidelines): 54.431 kg Excess body weight loss: 29.4% The patient is a 52 year-old F who presents for Bariatric Assessment. Patient presents today for follow-up. Patient recently had her LAP-BAND removed. She was able to undergo sleeve conversion due to adhesions. Patient will be rescheduled for laparoscopic sleeve gastrectomy next month. Past Medical History Past Medical History: GERD/Reflux, Hypertension, Osteoarthritis (OA) Additional Past Medical History / Comment(s): hiatal hernia, ovarian cysts, pre diabetic - trying dietary interventions, abominal cramping when she bends over History of Any Multi-Drug Resistant Organisms: None Reported Past Surgical History: Bariatric Surgery, Hysterectomy, Tonsillectomy, Tubal Ligation Additional Past Surgical History / Comment(s): lap band 2002, total hysterectomy 2013, EGD, COLONOSCOPY. lap band removal 05-04-23 Past Anesthesia/Blood Transfusion Reactions: No Reported Reaction Additional Past Anesthesia/Blood Transfusion Reaction / Comm: No hx of transfusions Past Psychological History: Anxiety, Depression Smoking Status: Never smoker Past Alcohol Use History: None Reported Past Drug Use History: None Reported - Past Family History Father Family Medical History: Asthma, Cancer Additional Family Medical History / Comment(s): colon cancer, Mother Family Medical History: Cancer Additional Family Medical History / Comment(s): at age 50 from stomach cancer Brother(s) Family Medical History: Cancer Additional Family Medical History / Comment(s): LYMPHOMA Surgical - Exam Vital Signs Temp Pulse BP 98.1 F 76 140/87 05/11/23 13:55 05/11/23 13:55 05/11/23 13:55 - General well developed, well nourished - Eyes PERRL - Abdomen Incisions well-healed Abdomen: soft, non tender Bariatric Assessment & Plan Plan: History of chronic dysphagia with LAP-BAND. Patient LAP-BAND was removed. She'll be scheduled for conversion sleeve gastrectomy next month. Bariatric Checklist Checklist: Plan: Checklist: EGD: 1. Hiatal hernia: 2. H. Pylori: HgbA1c: Vitamin D: Smoking: Never smoker Primary care physician referral: eva echeverria Psychiatry clearance: Cardiology clearance: Sleep study: Diet journal: VTE risk score: VTE risk level: Rehab needs at discharge:
== END ==
LOC: BARWHC3 13:14
PROVIDERS: ATTEND Surgery
DX: E66.01 Morbid (severe) obesity due to excess calories (principal); Z68.41 Body mass index [BMI] 40.0-44.9, adult; Z46.51 Encounter for fitting and adjustment of gastric lap band; Z98.84 Bariatric surgery status; K21.9 Gastro-esophageal reflux disease without esophagitis; I10 Essential (primary) hypertension; M19.90 Unspecified osteoarthritis, unspecified site
CPT/HCPCS: 99211

== ENCOUNTER → 2023-05-25 | Outpatient (CLI) | payer OTHER ==
--- NOTE | 2023-05-25 12:41 | USB ---
Reason for Exam: Follow-up at short interval from prior study. Patient History: Menarche at age 15. First Full-Term at age 20. Left ovary removed at age 46. Right ovary removed at age 46. Hysterectomy at age 46. Postmenopausal. Patient used Estrogen for 3 years. Hormonal Contraceptives for 6 years from age 20 until age 27. Paternal grandmother had breast cancer. Maternal grandmother had breast cancer. Maternal aunt had breast cancer. Risk Values: Laura 5 year model risk: 0.7%. NCI Lifetime model risk: 6.5%. Technique: Method: Targeted. Prior Study Comparison: 01/24/2014 Bilateral Screening Mammogram, [facility]. 04/30/2020 Bilateral Screening Mammogram, [facility]. 11/07/2022 Bilateral MG 3D diag mammo w/cad OSMAR, [facility]. Findings: The axilla of the left breast was scanned. Imaged: Ultrasound imaging of: Area of concern/axilla. Lymph nodes with normal fatty hilum's. No evidence for organizing fluid collection or mass. Overall Assessment: Benign, BI-RAD 2 Management: Screening Mammogram of both breasts in 1 year. A clinical breast exam by your physician is recommended on an annual basis and results should be correlated with mammographic findings. This exam should not preclude additional follow-up of suspicious palpable abnormalities. Results were given to the patient verbally at the time of exam. Electronically signed and approved by: Carlos Borrego DO
--- NOTE | 2023-05-25 12:44 | USB ---
Reason for Exam: Follow-up at short interval from prior study. Patient History: Menarche at age 15. First Full-Term at age 20. Left ovary removed at age 46. Right ovary removed at age 46. Hysterectomy at age 46. Postmenopausal. Patient used Estrogen for 3 years. Hormonal Contraceptives for 6 years from age 20 until age 27. Paternal grandmother had breast cancer. Maternal grandmother had breast cancer. Maternal aunt had breast cancer. Risk Values: [place] 5 year model risk: 0.7%. NCI Lifetime model risk: 6.5%. Technique: Method: Targeted. Prior Study Comparison: 01/24/2014 Bilateral Screening Mammogram, [facility]. 04/30/2020 Bilateral Screening Mammogram, [facility]. 11/07/2022 Bilateral MG 3D diag mammo w/cad OSMAR, [facility]. Findings: The axilla of the right breast was scanned. Imaged: Ultrasound imaging of: Area of concern/axilla. Lymph nodes with normal fatty hilum's. No evidence for organizing fluid collection or mass. Overall Assessment: Benign, BI-RAD 2 Management: Screening Mammogram of both breasts in 1 year. A clinical breast exam by your physician is recommended on an annual basis and results should be correlated with mammographic findings. This exam should not preclude additional follow-up of suspicious palpable abnormalities. Results were given to the patient verbally at the time of exam. Electronically signed and approved by: Carlos Borrego DO
== END | disposition home or self-care (01) ==
LOC: RADUSWWP 11:52
PROVIDERS: ATTEND Family Medicine
DX: R59.0 Localized enlarged lymph nodes (principal); Z80.3 Family history of malignant neoplasm of breast; Z78.0 Asymptomatic menopausal state

== ENCOUNTER → 2023-05-25 | Outpatient (CLI) | payer OTHER ==
[2023-05-25 12:58] VITALS: BP 141/83; PULSE 73; TEMP 98.1; BMI 41.5
--- NOTE | 2023-05-25 13:21 | P.HPBAR ---
Bariatric H&P - History & Physicial H&P Date: 05/25/23 History & Physicial: Visit/CC: pre-surg sleeve Patient initial contact: Initial weight: 131.542 kg Initial weight in pounds: 290.00 Height: 5 ft 4 in Initial BMI: 49.8 Last weight: Current weight: 109.769 kg Current weight in pounds: 242.00 Current BMI: 41.5 [place] body weight (based on NIH guidelines): 54.431 kg Excess body weight loss: 28.2% The patient is a 52 year-old F who presents for Bariatric Assessment. Patient resents today for presurgical follow-up. Patient had her LAP-BAND removed recently. Patient had a significant amount of adhesions and inflammation on her back LAP-BAND which prevented removed converting to sleeve gastrectomy the time for surgery. Patient is doing well. She has no complaints today. Her weight is stable at 242 pounds. Past Medical History Past Medical History: GERD/Reflux, Hypertension, Osteoarthritis (OA) Additional Past Medical History / Comment(s): hiatal hernia, ovarian cysts, pre diabetic - trying dietary interventions, abominal cramping when she bends over History of Any Multi-Drug Resistant Organisms: None Reported Past Surgical History: Bariatric Surgery, Hysterectomy, Tonsillectomy, Tubal Ligation Additional Past Surgical History / Comment(s): lap band 2002, total hysterectomy 2013, EGD, COLONOSCOPY. lap band removal 05-04-23 Past Anesthesia/Blood Transfusion Reactions: No Reported Reaction Additional Past Anesthesia/Blood Transfusion Reaction / Comm: No hx of transfusi ons Past Psychological History: Anxiety, Depression Smoking Status: Never smoker Past Alcohol Use History: None Reported Past Drug Use History: None Reported - Past Family History Father Family Medical History: Asthma, Cancer Additional Family Medical History / Comment(s): colon cancer, Mother Family Medical History: Cancer Additional Family Medical History / Comment(s): at age 50 from stomach cancer Brother(s) Family Medical History: Cancer Additional Family Medical History / Comment(s): LYMPHOMA Surgical - Exam Vital Signs Temp Pulse BP 98.1 F 73 141/83 05/25/23 12:53 05/25/23 12:53 05/25/23 12:53 - General well developed, well nourished, no distress - Eyes PERRL - Respiratory normal expansion - Cardiovascular Rhythm: regular - Abdomen Abdomen: soft, non tender Bariatric Assessment & Plan Plan: Morbid obesity, BMI 42. Patient will undergo sleeve gastrectomy. Patient's aware the risks of surgery including gastric sleeve perforation, bleeding and scarring. Bariatric Checklist Checklist: Plan: Checklist: EGD: 1. Hiatal hernia: 2. H. Pylori: HgbA1c: Vitamin D: Smoking: Never smoker Primary care physician referral: eva echeverria Psychiatry clearance: Cardiology clearance: Sleep study: Diet journal: VTE risk score: VTE risk level: Rehab needs at discharge:
== END ==
LOC: BARWHC3 12:39
PROVIDERS: ATTEND Surgery
DX: E66.01 Morbid (severe) obesity due to excess calories (principal); K21.9 Gastro-esophageal reflux disease without esophagitis; I10 Essential (primary) hypertension; M19.90 Unspecified osteoarthritis, unspecified site; E11.9 Type 2 diabetes mellitus without complications; Z98.84 Bariatric surgery status; Z46.51 Encounter for fitting and adjustment of gastric lap band; Z48.815 Encounter for surgical aftercare following surgery on the digestive system; Z68.41 Body mass index [BMI] 40.0-44.9, adult; Z79.899 Other long term (current) drug therapy
CPT/HCPCS: 99211

== ENCOUNTER → 2023-05-26 | Outpatient (CLI) | payer OTHER ==
[2023-05-26 15:31] LABS: Basophils # (A) 0.04 X 10*3/uL (0.00-0.10); Basophils % (A) 0.5 %; Eosinophils # (A) 0.42 X 10*3/uL (0.04-0.35); Eosinophils % (A) 5.3 %; HCT 40.2 % (37.2-46.3); Lymphocytes # (A) 2.37 X 10*3/uL (0.90-5.00); Lymphocytes % (A) 29.7 %; MCH 29.3 pg (27.0-32.0); MCHC 32.3 d/dL (32.0-37.0); MCV 90.5 FL (80.0-97.0); Mean Platelet Volume 10.6 FL (9.5-12.2); Monocytes # (A) 0.42 X 10*3/uL (0.20-1.00); Monocytes % (A) 5.3 %; NRBC Per 100 WBC 0 X 10*3/uL (0.00-0.01); Neutrophils # (A) 4.69 X 10*3/uL (1.80-7.70); Neutrophils % (A) 58.7 %; Platelet Count 301 X 10*3/uL (140-440); RBC 4.44 X 10*6/uL (4.10-5.20); RDW 13.5 % (11.5-14.5); WBC 7.98 X 10*3/uL (4.50-10.00)
[2023-05-26 15:45] LABS: ALT 33 U/L (8-44); AST 31 U/L (13-35); Albumin/Globulin Ratio 1.54 Ratio (1.60-3.17); Alkaline Phosphatase 99 U/L (41-126); BUN/Creat Ratio 16.88 Ratio (12.00-20.00); Blood Urea Nitrogen 13.5 mg/dL (9.0-27.0); Calcium 9.2 mg/dL (8.7-10.3); Chloride 103 mmol/L (96-109); Globulin 2.6 d/dL (1.6-3.3); Glucose 121 mg/dL (70-110); Potassium 4.6 mmol/L (3.5-5.5); Sodium 138 mmol/L (135-145); Total Bilirubin 0.2 mg/dL (0.3-1.2); Total Protein 6.6 d/dL (6.2-8.2)
== END | disposition home or self-care (01) ==
LOC: LABPAT 11:28
PROVIDERS: ATTEND Surgery
DX: Z01.812 Encounter for preprocedural laboratory examination (principal)
CPT/HCPCS: 36415; 80053; 85025

== ENCOUNTER 2023-06-15 07:08 | Inpatient (IN) | payer OTHER ==
[2023-06-15] MEDS ORDERED: ONDANSETRON 4 MG/2 ML VIAL ONE (08:00)
[2023-06-15] MEDS: LACTATED RINGERS 1,000 ML IV SCH (08:01)
[2023-06-15] MEDS ORDERED: ONDANSETRON 4 MG/2 ML VIAL IVP ONE (08:01)
[2023-06-15] MEDS ORDERED: DEXAMETHASONE SOD PHOSPHATE 4 MG/ML 1 ML VIAL IVP ONE (08:02)
--- NOTE | 2023-06-15 08:15 | P.GSHP ---
History of Present Illness H&P Date: 06/15/23 Chief Complaint: Morbid obesity This is a 52-year-old female who presents today for laparoscopic sleeve gastrectomy. Patient's had previous LAP-BAND system. Patient had her LAP-BAND removed several weeks ago. Patient is where the first surgery including possible gastric leak, obstruction and scarring. Past Medical History Past Medical History: GERD/Reflux, Hypertension, Osteoarthritis (OA) Additional Past Medical History / Comment(s): hiatal hernia, ovarian cysts, pre diabetic - trying dietary interventions, abominal cramping when she bends over History of Any Multi-Drug Resistant Organisms: None Reported Past Surgical History: Bariatric Surgery, Hysterectomy, Tonsillectomy, Tubal Ligation Additional Past Surgical History / Comment(s): lap band 2002, total hysterectomy 2013, EGD, COLONOSCOPY. lap band removal 05-04-23 Past Anesthesia/Blood Transfusion Reactions: No Reported Reaction Additional Past Anesthesia/Blood Transfusion Reaction / Comment(s): No hx of transfusions Smoking Status: Never smoker - Past Family History Father Family Medical History: Asthma, Cancer Additional Family Medical History / Comment(s): colon cancer, Mother Family Medical History: Cancer Additional Family Medical History / Comment(s): at age 50 from stomach cancer Brother(s) Family Medical History: Cancer Additional Family Medical History / Comment(s): LYMPHOMA Medications and Allergies Home Medications Medication Instructions Recorded Confirmed Type traMADol HCL [Ultram] 50 mg PO Q8H PRN 05/24/17 06/08/23 History Famotidine 40 mg PO HS 12/08/22 06/15/23 History Omeprazole 20 mg PO DAILY 12/08/22 06/15/23 History Vilazodone HCl [Viibryd] 40 mg PO DAILY 12/08/22 06/15/23 History busPIRone HCL [Buspirone HCl] 15 mg PO DAILY 12/08/22 06/15/23 History lisinopriL [Zestril] 10 mg PO DAILY 12/08/22 06/15/23 History Cranberry Fruit Extract [Cranberry] 200 mg PO DAILY 02/16/23 06/08/23 History estradioL 2 mg PO DAILY 02/19/23 06/15/23 History Cholecalciferol [Vitamin D3 (25 25 mcg PO DAILY 04/28/23 06/08/23 History Mcg = 1000 Iu)] Cyanocobalamin (Vitamin B-12) 1,000 mcg PO DAILY 04/28/23 06/08/23 History [Vitamin B-12] Multivit with Calcium,Iron,Min 1 each PO DAILY 04/28/23 06/08/23 History [Women's Multivitamin] Acetaminophen Tab [Tylenol] 650 mg PO Q6H #30 tab 05/04/23 06/15/23 Rx Ibuprofen [Motrin] 600 mg PO Q6HR PRN #40 tab 05/04/23 06/08/23 Rx Allergies Allergy/AdvReac Type Severity Reaction Status Date / Time No Known Allergies Allergy Verified 06/15/23 07:53 Surgical - Exam Vital Signs Temp Pulse Resp BP Pulse Ox 97.5 F L 68 18 162/78 95 06/15/23 07:55 06/15/23 07:55 06/15/23 07:55 06/15/23 07:55 06/15/23 07:55 - General well developed, well nourished, no distress - Eyes PERRL - ENT normal pinna - Neck no masses - Respiratory normal expansion - Cardiovascular Rhythm: regular - Abdomen Abdomen: soft, non tender Assessment and Plan Assessment: Morbid obesity, BMI 42. We'll perform laparoscopic sleeve gastrectomy.
[2023-06-15] MEDS ORDERED: ACETAMINOPHEN TAB 500 MG TAB PO ONE (08:21)
[2023-06-15] MEDS ORDERED: HEPARIN SODIUM,PORCINE 5,000 UNIT/ML 1 ML VIAL SQ ONE (08:21)
[2023-06-15] MEDS ORDERED: HEPARIN SODIUM,PORCINE/PF 5,000 UNIT/0.5 ML SYRINGE SQ ONE (08:22)
[2023-06-15] MEDS ORDERED: ACETAMINOPHEN TAB 500 MG TAB ONE (08:22)
[2023-06-15] MEDS ORDERED: MIDAZOLAM 2 MG/2 ML VIAL IVP ONE (08:33)
[2023-06-15] MEDS ORDERED: SUCCINYLCHOLINE CHLORIDE 200 MG/10 ML VIAL IV ONE (08:37)
[2023-06-15] MEDS ORDERED: NEOSTIGMINE 1 MG/ML 10 ML VIAL ONE (08:37)
[2023-06-15] MEDS ORDERED: fentaNYL (PF) 50 MCG/ML 2 ML AMP ONE (08:37)
[2023-06-15] MEDS ORDERED: GLYCOPYRROLATE 0.2 MG/ML 2 ML VIAL ONE (08:37)
[2023-06-15] MEDS ORDERED: MIDAZOLAM 2 MG/2 ML VIAL ONE (08:37)
[2023-06-15] MEDS ORDERED: ROCURONIUM 10 MG/ML (5 ML VIAL) IV ONE (08:37)
[2023-06-15] MEDS ORDERED: LIDOCAINE 2% INJ 20 MG/ML (2 ML VIAL) ONE (08:37)
[2023-06-15] MEDS ORDERED: HYDROmorphone (PF) 1 MG/ML ONE (08:37)
[2023-06-15] MEDS ORDERED: PROPOFOL 10 MG/ML 20 ML VIAL IV ONE (08:37)
[2023-06-15] MEDS ORDERED: BUPIVACAINE (PF) 0.25% 10 ML VIAL SQ ONE (09:07)
[2023-06-15] MEDS ORDERED: HYDROmorphone 0.5 MG/0.5 ML SYRINGE IVP ONE ×4 (10:39→15:38)
--- NOTE | 2023-06-15 10:39 | P.OP ---
Date of Procedure: 06/15/23 Preoperative Diagnosis: Morbid obesity, BMI 42 Postoperative Diagnosis: Morbid obesity, BMI 42 Procedure(s) Performed: Laparoscopic sleeve gastrectomy Anesthesia: MARE Surgeon: Arun Travis Estimated Blood Loss (ml): 25 Pathology: other (Stomach) Condition: stable Disposition: PACU Description of Procedure: The patient was placed on the operating room table in the supine position. She received general anesthesia and then was placed in dorsal lithotomy position. Her abdomen was prepped and draped in sterile fashion. The skin incision sites were anesthetized 1% local Xylocaine. And then the skin was incised with an 11 blade in the left lateral position. Using a blade less trocar under direct visualization the peritoneal cavity was entered. The abdomen was insufflated and then a 5 mm laparoscope was placed into the peritoneal cavity. A 5 mm trocar was placed in the right epigastric, and right lateral position. A 15 mm trocar was placed in the supra-umbilical position and another 5 mm trocar was placed in the left lateral position. The left lateral lobe of the liver was retracted. The stomach was visualized. There were some adhesions between the stomach and liver these were lysed with sharp dissection. The greater curvature of the stomach was then dissected using the Harmonic scissors. The dissection occurred approximately 5 cm from the pylorus to the level of the left henna. There was no hiatal hernia seen. At this point a 40-Wolof bougie dilator was placed the oropharynx and passed into the esophagus and into the stomach by the RESIDENTIAL ENERGY AUDITOR. The sleeve gastrectomy was performed by using the powered echelon stapler with a seam guard buttress material. Sequential firings of the stapler were performed. The gastric remnant was then brought out through the 15 mm trocar site. The dilator was withdrawn. And a orogastric tube was replaced into the stomach. The stomach was insufflated with 200 mL of methylene blue normal saline. There was no evidence of extravasation. The abdomen was irrigated there is no bleeding seen. The Anselmo-Karuna device was used to close the 15 mm trocar with 0 Vicryl. Skin was closed with interrupted 3-0 Monocryl sutures once the trochars withdrawn. Dermabond dressing was applied. Patient was sent to recovery in stable condition.
[2023-06-15] MEDS ORDERED: NALOXONE 0.4 MG/ML 1 ML VIAL IV PRN (14:07)
[2023-06-15] MEDS ORDERED: diphenhydrAMINE 50 MG/ML 1 ML VIAL IVP PRN (14:07)
[2023-06-15] MEDS: ONDANSETRON 4 MG/2 ML VIAL IVP PRN (15:42)
[2023-06-15] MEDS: HYDROmorphone 0.5 MG/0.5 ML SYRINGE IVP PRN ×2 (16:12→21:34)
[2023-06-15] MEDS: 0.9% NACL WITH KCL 20 MEQ/L 1,000 ML IV SCH ×2 (16:47→23:17)
[2023-06-15] MEDS: KETOROLAC 15 MG/ML 1 ML VIAL IVP SCH ×2 (18:11→23:20)
[2023-06-15] MEDS: ALBUTEROL NEBULIZED 2.5 MG/3 ML INHALATION SCH ×2 (18:25→22:17)
[2023-06-15] MEDS: ENOXAPARIN 40 MG/0.4 ML SYRINGE SQ SCH (23:20)
[2023-06-16] MEDS: HYDROmorphone 0.5 MG/0.5 ML SYRINGE IVP PRN ×3 (04:24→15:57)
[2023-06-16] MEDS: 0.9% NACL WITH KCL 20 MEQ/L 1,000 ML IV SCH (04:31)
[2023-06-16] MEDS: KETOROLAC 15 MG/ML 1 ML VIAL IVP SCH ×4 (06:01→23:49)
[2023-06-16] MEDS: HYDROcodone/APAP 15 ML SOLUTION PO PRN ×4 (06:53→22:14)
[2023-06-16 07:28] LABS: Basophils % (A) 0 %; Eosinophils # (A) 0.3 k/uL (0-0.7); Eosinophils % (A) 4 %; HCT 38.8 % (34.0-46.0); HGB 12.4 gm/dL (11.4-16.0); Lymphocytes # (A) 1.3 k/uL (1.0-4.8); Lymphocytes % (A) 15 %; MCV 93.6 fL (80.0-100.0); Mean Platelet Volume 8.1; Monocytes # (A) 0.5 k/uL (0-1.0); Monocytes % (A) 5 %; Neutrophils # (A) 6.7 k/uL (1.3-7.7); Neutrophils % (A) 75 %; Platelet Count 278 k/uL (150-450); RBC 4.14 m/uL (3.80-5.40); RDW 13.7 % (11.5-15.5); WBC 8.9 k/uL (3.8-10.6)
[2023-06-16] MEDS: PANTOPRAZOLE 40 MG/10 ML VIAL IV SCH (08:17)
[2023-06-16] MEDS: busPIRone HCl 5 MG TAB PO SCH (08:17)
[2023-06-16] MEDS: ALBUTEROL NEBULIZED 2.5 MG/3 ML INHALATION SCH ×5 (08:34→20:40)
[2023-06-16 08:44] LABS: African American GFR (CKD) >90 (>60 ml/min/1.73 sqM); Blood Urea Nitrogen 12 mg/dL (7-17); Calcium 7.4 mg/dL (8.4-10.2); Carbon Dioxide 22 mmol/L (22-30); Glucose 94 mg/dL (74-99); Magnesium 1.9 mg/dL (1.6-2.3); Non-African American GFR(CKD) >90 (>60 ml/min/1.73 sqM); Phosphorus 3.3 mg/dL (2.5-4.5)
[2023-06-16] MEDS: estradioL 1 MG TAB PO SCH (09:07)
[2023-06-16] MEDS: ENOXAPARIN 40 MG/0.4 ML SYRINGE SQ SCH ×2 (09:08→22:13)
[2023-06-16] MEDS: NON FORMULARY DRUG (Vilazodone Hcl [Viibryd] 40 MG Tablet) PO SCH (09:10)
[2023-06-16] MEDS: LACTATED RINGERS 1,000 ML IV SCH (09:10)
[2023-06-16 09:40] LABS: Anion Gap 6 mmol/L; Chloride 107 mmol/L (98-107); Potassium 4.3 mmol/L (3.5-5.1); Sodium 135 mmol/L (137-145)
[2023-06-16] MEDS: SIMETHICONE 40 MG/0.6 ML DROPS 2,000 MG/30 ML BOTTLE PO SCH ×4 (11:13→22:13)
[2023-06-16 11:14] VITALS: BMI 42.0
--- NOTE | 2023-06-16 14:26 | P.CONS ---
History of Present Illness - Reason for Consult Consult date: 06/16/23 Medical management, postoperative sleeve gastrectomy - History of Present Illness This is a 52-year-old female who was admitted under Gen. surgery services status post laparoscopic sleeve gastrectomy with Dr. Travis postop day 1 reporting pain and not passing much gas although his belching. Patient reports she follow s with Dr. Crain in the outpatient setting with a past medical history of GERD, hypertension, osteoarthritis, previous bariatric surgery with lap band with lap band removal approximately one month ago, anxiety and depression. Patient is reporting some epigastric chest pain with gas that is radiating up to her left shoulder and reports is not passing gas and has not had a bowel movement as of yet. Patient is maintained on bariatric clear diet and home medications reviewed and resumed as appropriate. Patient was slightly low blood pressures monitoring for hypotension postoperatively and would recommend holding patient's lisinopril. Other appropriate medications have been resumed. Labs t his morning reviewed and within normal limits. Patient with incentive spirometer at bedside encourage the patient to continue using at least 10 times every hour while awake and frequent walking and ambulation as much as tolerated. Review Of Systems: Constitutional: No fever, no chills, no night sweats. No weight change. No weakness, fatigue or lethargy. No daytime sleepiness. EENT: No headache. No blurred vision or double vision, no loss of vision. No loss of Hearing, no ringing in the ears, no dizziness. No nasal drainage or congestion. No epistaxis. No sore throat. Lungs: No shortness of breath, cough, no sputum production. No wheezing. Cardiovascular: Reports of epigastric chest pain with belching that is radiating up to her left shoulder, no lower extremity edema. No palpitations. No paroxysmal nocturnal dyspnea. No orthopnea. No lightheadedness or dizziness. No syncopal episodes. Abdominal: Reports abdominal pain. No nausea, vomiting. No diarrhea. No constipation. No bloody or tarry stools.. Reports loss of appetite. Genitourinary: No dysuria, increased frequency, urgency. No urinary retention. Musculoskeletal: No myalgias. No muscle weakness, no gait dysfunction, no frequent falls. No back pain. No neck pain. Integumentary: No wounds, no lesions. No rash or pruritus. No unusual bruising. No change in hair or nails. Neurologic: No aphasia. No facial droop. No change in mentation. No head injury. No headache. No paralysis. No paresthesia. Psychiatric: No depression. No anxiety. No mood swings. Endocrine: No abnormal blood sugars. No weight change. No excessive sweating or thirst. No cold intolerance. PHYSICAL EXAMINATION: GENERAL: The patient is alert and oriented x4, Well developed, well nourished. Morbidly obese HEENT: Pupils are round and equally reacting to light. EOMI. no scleral icterus. No conjunctival pallor. Normocephalic, atraumatic. No pharyngeal erythema. No thyromegaly. CARDIOVASCULAR: S1 and S2 muffled PULMONARY: diminished breath sounds bilaterally with no wheezing or rhonchi noted. ABDOMEN: soft. tender on exam. obese. non-distended, sluggish bowel sounds. No palpable organomegaly. Abdominal binder noted MUSCULOSKELETAL: No joint swelling or deformity. EXTREMITIES: No cyanosis, clubbing, or pedal edema. NEUROLOGICAL: Gross neurological examination did not reveal any focal deficits. SKIN: No rashes. Assessment: Status post laparoscopic sleeve gastrectomy Morbid obesity with a BMI of 42.0 Gastroesophageal reflux disease Hypertension history Osteoarthritis history Previous history of bariatric surgery with lap band and removal 05/04/2023 History of anxiety/depression GI prophylaxis DVT prophylaxis Full code Plan: Patient was admitted under surgical services status post laparoscopic sleeve gastrectomy postop day 1 Patient is reporting some chest pain in the epigastric region that feels like a bubble that is radiating up to her shoulder, will obtain EKG Encouraged incentive spirometer use at least 10 times every hour while awake Encouraged increase activity as tolerated and frequent walking around the halls Patient maintained on clear liquids per surgery and be advanced as tolerated per surgery recommendations only Appropriate home medications have been reviewed and resumed Patient is diabetic diet controlled and most recent blood sugar this morning was 94. Will add Accu-Cheks and use sliding scale as needed We will continue to follow with general surgery during hospitalization. Thank you kindly for this consultation. The impression and plan of care has been dictated by Alesia Baugh, nurse practitioner as directed. Dr. Erasto MD I have performed a history and examination and MDM of this patient, discussed the same with the dictator, and agree with the dictator's assessment and plan as written ,documented as a scribe. Based on total visit time, I have performed more than 50% of the visit. Any additional findings or plans will be noted. Past Medical History Past Medical History: GERD/Reflux, Hypertension, Osteoarthritis (OA) Additional Past Medical History / Comment(s): hiatal hernia, ovarian cysts, pre diabetic - trying dietary interventions, abominal cramping when she bends over History of Any Multi-Drug Resistant Organisms: None Reported Past Surgical History: Bariatric Surgery, Hysterectomy, Tonsillectomy, Tubal Ligation Additional Past Surgical History / Comment(s): lap band 2002, total hysterectomy 2013, EGD, COLONOSCOPY. lap band removal 05-04-23 Past Anesthesia/Blood Transfusion Reactions: No Reported Reaction Additional Past Anesthesia/Blood Transfusion Reaction / Comm: No hx of transfusions Past Psychological History: Anxiety, Depression Additional Psychological History / Comment(s): medication effective Smoking Status: Never smoker Past Alcohol Use History: None Reported Past Drug Use History: None Reported - Past Family History Father Family Medical History: Asthma, Cancer Additional Family Medical History / Comment(s): colon cancer, Mother Family Medical History: Cancer Additional Family Medical History / Comment(s): at age 50 from stomach cancer Brother(s) Family Medical History: Cancer Additional Family Medical History / Comment(s): LYMPHOMA Medications and Allergies Home Medications Medication Instructions Recorded Confirmed Type traMADol HCL [Ultram] 50 mg PO Q8H PRN 05/24/17 06/08/23 History Famotidine 40 mg PO HS 12/08/22 06/15/23 History Omeprazole 20 mg PO DAILY 12/08/22 06/15/23 History Vilazodone HCl [Viibryd] 40 mg PO DAILY 12/08/22 06/15/23 History busPIRone HCL [Buspirone HCl] 15 mg PO DAILY 12/08/22 06/15/23 History lisinopriL [Zestril] 10 mg PO DAILY 12/08/22 06/15/23 History Cranberry Fruit Extract [Cranberry] 200 mg PO DAILY 02/16/23 06/08/23 History estradioL 2 mg PO DAILY 02/19/23 06/15/23 History Cholecalciferol [Vitamin D3 (25 25 mcg PO DAILY 04/28/23 06/08/23 History Mcg = 1000 Iu)] Cyanocobalamin (Vitamin B-12) 1,000 mcg PO DAILY 04/28/23 06/08/23 History [Vitamin B-12] Multivit with Calcium,Iron,Min 1 each PO DAILY 04/28/23 06/08/23 History [Women's Multivitamin] Acetaminophen Tab [Tylenol] 650 mg PO Q6H #30 tab 05/04/23 06/15/23 Rx Ibuprofen [Motrin] 600 mg PO Q6HR PRN #40 tab 05/04/23 06/08/23 Rx Allergies Allergy/AdvReac Type Severity Reaction Status Date / Time No Known Allergies Allergy Verified 06/15/23 07:53 Physical Exam Vitals: Vital Signs Temp Pulse Pulse Pulse Resp BP BP 06/16/23 08:45 80 06/16/23 08:36 86 06/16/23 07:20 98.1 F 74 18 130/79 06/16/23 02:00 98.1 F 76 96/61 06/15/23 22:26 68 06/15/23 22:20 06/15/23 22:17 69 06/15/23 20:00 97.7 F 69 17 142/82 06/15/23 16:00 97.7 F 79 18 136/85 06/15/23 15:30 82 18 134/75 06/15/23 14:30 70 16 146/82 06/15/23 13:30 72 16 149/88 06/15/23 13:00 59 L 16 148/92 06/15/23 12:30 77 16 146/94 06/15/23 12:00 70 16 168/78 06/15/23 11:23 68 16 147/82 06/15/23 11:08 67 16 124/56 06/15/23 10:53 75 18 162/77 06/15/23 10:38 83 20 177/74 06/15/23 10:23 98.1 F 92 16 148/64 Pulse Ox FiO2 06/16/23 08:45 06/16/23 08:36 96 06/16/23 07:20 93 L 06/16/23 02:00 95 06/15/23 22:26 06/15/23 22:20 94 L 21 06/15/23 22:17 06/15/23 20:00 96 06/15/23 16:00 92 L 06/15/23 15:30 97 06/15/23 14:30 96 06/15/23 13:30 97 06/15/23 13:00 96 06/15/23 12:30 96 06/15/23 12:00 60 L 06/15/23 11:23 96 06/15/23 11:08 95 06/15/23 10:53 97 06/15/23 10:38 97 06/15/23 10:23 98 Intake and Output 06/15/23 06/16/23 06/16/23 22:59 06:59 14:59 Intake Total 500 Balance 500 Intake: IV 500 Other: # Voids 1 1 Weight 111 kg Results CBC & Chem 7: 06/16/23 06:37 06/16/23 06:37 Labs: Abnormal Lab Results - Last 24 Hours (Table) 06/16/23 Range/Units 06:37 Calcium 7.4 L (8.4-10.2) mg/dL
[2023-06-16] MEDS: ONDANSETRON 4 MG/2 ML VIAL IVP PRN (15:53)
--- NOTE | 2023-06-16 15:54 | P.PN ---
Subjective Progress Note Date: 06/16/23 CHIEF COMPLAINT: Morbid obesity HISTORY OF PRESENT ILLNESS: Postop day 1 status post laparoscopic sleeve gastrectomy. Patient complaining of a headache. She did have nausea earlier that is better. She does have some abdominal pain. She denies any flatus. Denies any difficulty urinating. She has been up and ambulating. Afebrile. WBC 8.9 Hgb 12.4 platelets 278 sodium 135 potassium 4.3 creatinine 0.73 magnesium 1.9 PHYSICAL EXAM: VITAL SIGNS: Reviewed. GENERAL: Well-developed in no acute distress. ABDOMEN: Soft. Nondistended. Tender incision sites. NEUROLOGIC: Alert and oriented. Cranial nerves II through XII grossly intact. ASSESSMENT: 1. Morbid obesity 2. Headache PLAN: -Continue IV fluids -Continue pain management -Continue bariatric clear liquid diet -Encourage patient to ambulate -Encourage patient to use incentive spirometer -Gas drops added for gas pains -Anticipate discharge tomorrow Physician Industrial Robotics Mechanic note has been reviewed by physician. Signing provider agrees with the documented findings, assessment, and plan of care. Objective - Vital Signs Vital signs: Vital Signs Temp 98.1 F 06/16/23 07:20 Pulse 80 06/16/23 08:45 Resp 18 06/16/23 07:20 BP 130/79 06/16/23 07:20 Pulse Ox 96 06/16/23 08:36 FiO2 21 06/15/23 22:20 Intake & Output 06/15/23 06/16/23 06/16/23 18:59 06:59 18:59 Intake Total 850 Output Total 25 Balance 825 Weight 111 kg 111 kg Intake: IV 850 Output: Estimated Blood Loss 25 Other: # Voids 1 - Labs CBC & Chem 7: 06/16/23 06:37 06/16/23 06:37 Labs: Abnormal Lab Results - Last 24 Hours (Table) 06/16/23 Range/Units 06:37 Sodium 135 L (137-145) mmol/L Calcium 7.4 L (8.4-10.2) mg/dL
[2023-06-17] MEDS: KETOROLAC 15 MG/ML 1 ML VIAL IVP SCH ×2 (05:41→12:52)
[2023-06-17] MEDS: ALBUTEROL NEBULIZED 2.5 MG/3 ML INHALATION SCH ×3 (07:39→15:21)
[2023-06-17] MEDS: NON FORMULARY DRUG (Vilazodone Hcl [Viibryd] 40 MG Tablet) PO SCH (09:04)
[2023-06-17] MEDS: estradioL 1 MG TAB PO SCH (09:13)
[2023-06-17] MEDS: SIMETHICONE 40 MG/0.6 ML DROPS 2,000 MG/30 ML BOTTLE PO SCH ×2 (09:13→12:54)
[2023-06-17] MEDS: ENOXAPARIN 40 MG/0.4 ML SYRINGE SQ SCH (09:13)
[2023-06-17] MEDS: busPIRone HCl 5 MG TAB PO SCH (09:13)
[2023-06-17] MEDS: PANTOPRAZOLE 40 MG/10 ML VIAL IV SCH (09:13)
[2023-06-17] MEDS: LACTATED RINGERS 1,000 ML IV SCH (09:18)
--- NOTE | 2023-06-17 14:37 | P.DS ---
Providers Date of admission: 06/15/23 07:08 Expected date of discharge: 06/17/23 Attending physician: Arun Travis Consults: 06/15/23 16:07 Consult Physician Routine Consulting Provider: Ryann Mckinnon Consult Reason/Comments: medical managment Do you want consulting provider notified?: Yes Primary care physician: Sonny Paras [facility] Hospital Course: Discharge diagnosis 1. Morbid obesity status post laparoscopic Sleeve gastrectomy Hospital course This is a 52-year-old female with a known history of morbid obesity. She is status post laparoscopic sleeve gastrectomy. She is tolerating diet. Her pain is controlled. She has been up and ambulating. She is having flatus. She is afebrile. She denies any difficulty urinating. She is stable for discharge. Please refer to chart for any further details. Physician Champion Of Sustainable Design note has been reviewed by physician. Signing provider agrees with the documented findings, assessment, and plan of care. Patient Condition at Discharge: Stable Plan - Discharge Summary Discharge Rx Participant: No New Discharge Prescriptions: New bisacodyL [Dulcolax] 5 mg PO DAILY PRN #10 tab PRN Reason: Constipation Ondansetron Odt [Zofran Odt] 4 mg PO Q8HR PRN #9 tab PRN Reason: Nausea Simethicone 40 mg/0.6 ml Drops [Mylicon Drops] 40 mg PO PCHS PRN #30 ml PRN Reason: Gas HYDROcodone/APAP 5-325MG [Ferguson 5-325] 1 tab PO Q6HR PRN 2 Days #5 tab PRN Reason: Pain Omeprazole [PriLOSEC] 40 mg PO DAILY #30 cap Continue busPIRone HCL 15 mg PO DAILY lisinopriL [Zestril] 10 mg PO DAILY Cranberry Fruit Extract [Cranberry] 200 mg PO DAILY estradioL 2 mg PO DAILY Vilazodone HCl [Viibryd] 40 mg PO DAILY Famotidine 40 mg PO HS Acetaminophen Tab [Tylenol] 650 mg PO Q6H #30 tab Discontinued traMADol HCL [Ultram] 50 mg PO Q8H PRN PRN Reason: Pain Cyanocobalamin (Vitamin B-12) [Vitamin B-12] 1,000 mcg PO DAILY Omeprazole 20 mg PO DAILY Cholecalciferol [Vitamin D3 (25 Mcg = 1000 Iu)] 25 mcg PO DAILY Multivit with Calcium,Iron,Min [Women's Multivitamin] 1 each PO DAILY Ibuprofen [Motrin] 600 mg PO Q6HR PRN #40 tab PRN Reason: Pain Discharge Medication List Famotidine 40 mg PO HS 12/08/22 [History] Vilazodone HCl [Viibryd] 40 mg PO DAILY 12/08/22 [History] busPIRone HCL 15 mg PO DAILY 12/08/22 [History] lisinopriL [Zestril] 10 mg PO DAILY 12/08/22 [History] Cranberry Fruit Extract [Cranberry] 200 mg PO DAILY 02/16/23 [History] estradioL 2 mg PO DAILY 02/19/23 [History] Acetaminophen Tab [Tylenol] 650 mg PO Q6H #30 tab 05/04/23 [Rx] HYDROcodone/APAP 5-325MG [Ferguson 5-325] 1 tab PO Q6HR PRN 2 Days #5 tab 06/17/23 [Rx] Omeprazole [PriLOSEC] 40 mg PO DAILY #30 cap 06/17/23 [Rx] Ondansetron Odt [Zofran Odt] 4 mg PO Q8HR PRN #9 tab 06/17/23 [Rx] Simethicone 40 mg/0.6 ml Drops [Mylicon Drops] 40 mg PO PCHS PRN #30 ml 06/17/23 [Rx] bisacodyL [Dulcolax] 5 mg PO DAILY PRN #10 tab 06/17/23 [Rx] [place] [facility]s[place] [facility] [place] Patient Instructions/Handouts: Nutrition after Bariatric Surgery (DC), Nutrition after Bariatric Surgery (GEN), Laparoscopic Sleeve Gastrectomy (DC), Laparoscopic Sleeve Gastrectomy (GEN) Activity/Diet/Wound Care/Special Instructions: No driving while taking Ferguson No lifting over 10 pounds Shower daily. No soaking or tub baths for 2 weeks Very light activity until you are reevaluated at your follow up appointment with your surgeon No straws or carbonated beverages Hold on taking vitamins until seen by surgeon Hold on taking Tramadol while you are using the Ferguson. Discharge Disposition: HOME SELF-CARE
[2023-06-17 15:35] VITALS: BP 134/83; PULSE 77; RESP 16; TEMP 98.7
--- NOTE | 2023-06-17 15:45 | P.PN ---
Subjective Progress Note Date: 06/17/23 - Reason for Consult Consult date: 06/16/23 Medical management, postoperative sleeve gastrectomy - History of Present Illness This is a 52-year-old female who was admitted under Gen. surgery services status post laparoscopic sleeve gastrectomy with Dr. Travis postop day 1 reporting pain and not passing much gas although his belching. Patient reports she follows with Dr. Crain in the outpatient setting with a past medical history of GERD, hypertension, osteoarthritis, previous bariatric surgery with lap band with lap band removal approximately one month ago, anxiety and depression. Patient is reporting some epigastric chest pain with gas that is radiating up to her left shoulder and reports is not passing gas and has not had a bowel movement as of yet. Patient is maintained on bariatric clear diet and home medications reviewed and resumed as appropriate. Patient was slightly low blood pressures monitoring for hypotension postoperatively and would recommend holding patient's lisinopril. Other appropriate medications have been resumed. Labs this morning reviewed and within normal limits. Patient with incentive s pirometer at bedside encourage the patient to continue using at least 10 times every hour while awake and frequent walking and ambulation as much as tolerated. 06/17/2023 Patient is seen in follow-up today reports the tolerating bariatric clear liquids and home medications have been resumed as appropriate. Patient reports she would like to go home today and currently awaiting follow-up with surgery for evaluation. Patient reports pain is managed and has not required IV pain medication since last night. Patient continues with abdominal binder and has been instructed to take home and continue using incentive spirometer as well. Patient reports she did go to her primary care provider for presurgical clearance and has been instructed to follow-up with them outpatient. Patient is medically stable for discharge home today. No reports of chest pain or shortness of breath. Patient denies nausea or vomiting and tolerating clears. Patient has been instructed to increase activity as tolerated with frequent walking around the halls. Review of systems: Constitutional: No reports of fatigue, fever, or chills Cardiovascular: No reports of chest pain or palpitations Respiratory: No reports of shortness of breath or cough GI: No reports of nausea, vomiting, or diarrhea : No reports of dysuria or retention Neurovascular: No reports of weakness or numbness All medications have been reviewed PHYSICAL EXAMINATION: GENERAL: The patient is alert and oriented x4, Well developed, well nourished. Morbidly obese HEENT: Pupils are round and equally reacting to light. EOMI. no scleral icterus. No conjunctival pallor. Normocephalic, atraumatic. No pharyngeal erythema. No thyromegaly. CARDIOVASCULAR: S1 and S2 muffled PULMONARY: diminished breath sounds bilaterally with no wheezing or rhonchi noted. ABDOMEN: soft. tender on exam. obese. non-distended, normal active bowel sounds. No palpable organomegaly. Abdominal binder noted MUSCULOSKELETAL: No joint swelling or deformity. EXTREMITIES: No cyanosis, clubbing, or pedal edema. NEUROLOGICAL: Gross neurological examination did not reveal any focal deficits. SKIN: No rashes. Assessment: Status post laparoscopic sleeve gastrectomy Morbid obesity with a BMI of 42.0 Gastroesophageal reflux disease Hypertension history Osteoarthritis history Previous history of bariatric surgery with lap band and removal 05/04/2023 History of anxiety/depression GI prophylaxis DVT prophylaxis Full code Plan: Patient was admitted under surgical services status post laparoscopic sleeve gastrectomy postop day 2 Patient reported some epigastric chest pain that was radiating up to her shoulder, most likely gas. Obtained EKG which was normal sinus rhythm. Patient denies any further chest pain Encouraged incentive spirometer use at least 10 times every hour while awake Encouraged increase activity as tolerated and frequent walking around the halls Patient maintained on clear liquids per surgery and be advanced as tolerated per surgery recommendations only Appropriate home medications have been reviewed and resumed Patient is medically stable for discharge today and has been instructed to keep follow-up appointments with surgery as well as her primary care provider We will continue to follow with general surgery during hospitalization. Thank you kindly for this consultation. The impression and plan of care has been dictated by Alesia Baugh, nurse practitioner as directed. Dr. Erasto MD I have performed a history and examination and MDM of this patient, discussed the same with the dictator, and agree with the dictator's assessment and plan as written ,documented as a scribe. Based on total visit time, I have performed more than 50% of the visit. Any additional findings or plans will be noted. Objective - Vital Signs Vital signs: Vital Signs Temp 97.9 F 06/17/23 02:00 Pulse 87 06/17/23 07:50 Resp 17 06/16/23 20:00 BP 116/78 06/17/23 02:00 Pulse Ox 97 06/17/23 02:00 FiO2 21 06/15/23 22:20 Intake & Output 06/16/23 06/17/23 06/17/23 18:59 06:59 18:59 Intake Total 480 Balance 480 Weight 111 kg Intake: Oral 480 Other: # Voids 3 1 - Labs CBC & Chem 7: 06/16/23 06:37 06/16/23 06:37
== END 2023-06-17 16:02 | disposition home or self-care (01) | DRG 403 ==
LOC: 2ORMAIN 07:08 → 4SSUR 15:35
PROVIDERS: ADMIT Surgery; ATTEND Surgery
PROC: 0DB64Z3 Excision of Stomach, Percutaneous Endoscopic Approach, Vertical (ICD-10-PCS; principal; 2023-06-15 08:30)
DX: E66.01 Morbid (severe) obesity due to excess calories (principal); Z68.41 Body mass index [BMI] 40.0-44.9, adult; F32.A Depression, unspecified; I10 Essential (primary) hypertension; K21.9 Gastro-esophageal reflux disease without esophagitis; M19.90 Unspecified osteoarthritis, unspecified site; F41.9 Anxiety disorder, unspecified; R03.1 Nonspecific low blood-pressure reading; R73.03 Prediabetes; R51.9 Headache, unspecified; Z79.890 Hormone replacement therapy; Z79.899 Other long term (current) drug therapy; Z98.84 Bariatric surgery status; Z28.310 Unvaccinated for COVID-19
CPT/HCPCS: 80048; 83735; 84100; 85025; 88307; 93005; 94640; 94760

== ENCOUNTER → 2023-06-24 | Outpatient (CLI) | payer OTHER ==
[2023-06-24 12:10] VITALS: BP 135/91; PULSE 71; TEMP 97.9; BMI 40.8
== END ==
LOC: BARWHC3 06-23 09:03
PROVIDERS: ATTEND Surgery
DX: E66.01 Morbid (severe) obesity due to excess calories (principal); Z51.89 Encounter for other specified aftercare; Z98.84 Bariatric surgery status
CPT/HCPCS: 97802; G0463; 99211